=== PATIENT | male | born 1940 | race Caucasian/White ===

== ENCOUNTER → 2016-06-26 | Outpatient (CLI) | payer OTHER ==
[2016-06-26 18:21] LABS: BASO % 0.3 %; BASO ABS # 0.03 K/uL (0-0.2); COMPLETE YES; EOS % 1.1 %; HEMATOCRIT 38.3 % (42-52); IG% 0.1 %; LYMPH % 14.8 %; LYMPH ABS # 1.32 K/uL (1.2-3.4); MEAN CORPUSCULAR HEMOGLOBIN 29.1 pg (25-34); MEAN CORPUSCULAR HGB CONC 33.4 g/dl (32-36); MEAN PLATELET VOLUME 10.1 fL (7.4-10.4); MONO % 11.7 %; PLATELET COUNT 285 K/uL (130-400)
[2016-06-26 18:51] LABS: ALT/SGPT 46 U/L (12-78); AST/SGOT 28 U/L (15-37); BLOOD UREA NITROGEN 34 mg/dl (7-18); BUN/CREATININE RATIO 20.2 (10-20); CALCIUM 9.3 mg/dl (8.5-10.1); CARBON DIOXIDE 28 mmol/L (21-32); CHLORIDE 100 mmol/L (98-107); CHOLESTEROL 160 mg/dl (0-200); GLUCOSE 135 mg/dl (70-99); POTASSIUM 4.3 mmol/L (3.5-5.1); SODIUM 138 mmol/L (136-145); URIC ACID 7.6 mg/dl (2.6-7.2)
[2016-06-26 18:59] LABS: ALB/GLOB RATIO 1.1 (0.9-2); ALKALINE PHOSPHATASE 89 U/L (45-117); CHOLESTEROL/HDL RATIO 3.6; HDL CHOLESTEROL 45 mg/dl; LDL CHOLESTEROL CALCULATED 91 mg/dl; TRIGLYCERIDES 118 mg/dl (0-150); VERY LOW DENSITY LIPOPROT CALC 24 mg/dl
[2016-06-26 19:08] LABS: RATIO 822.6 mcg/mg (0-30.0)
[2016-06-27 06:41] LABS: ESTIMATED AVERAGE GLUCOSE 186 mg/dl; HA1C FLAG Normal (Normal)
== END | disposition home or self-care (01) ==
LOC: C.LABMFLN 13:42
PROVIDERS: ATTEND Family Medicine
DX: I10 Essential (primary) hypertension (principal); E11.9 Type 2 diabetes mellitus without complications; M10.9 Gout, unspecified; E03.9 Hypothyroidism, unspecified

== ENCOUNTER → 2016-09-15 | Outpatient (CLI) | payer OTHER ==
[2016-09-15 13:50] LABS: ESTIMATED AVERAGE GLUCOSE 186 mg/dl; HA1C FLAG Normal (Normal)
[2016-09-15 14:08] LABS: BLOOD UREA NITROGEN 37 mg/dl (7-18); BUN/CREATININE RATIO 20.7 (10-20); CALCIUM 9.2 mg/dl (8.5-10.1); CARBON DIOXIDE 28 mmol/L (21-32); CHLORIDE 108 mmol/L (98-107); GLUCOSE 143 mg/dl (70-99); POTASSIUM 4.7 mmol/L (3.5-5.1); SODIUM 142 mmol/L (136-145)
[2016-09-15 14:09] LABS: PHOSPHORUS 3.2 mg/dl (2.5-4.9)
== END | disposition home or self-care (01) ==
LOC: C.LABMFLN 14:00
PROVIDERS: ATTEND Family Medicine
DX: N18.9 Chronic kidney disease, unspecified (principal); E11.9 Type 2 diabetes mellitus without complications

== ENCOUNTER → 2016-11-17 | Outpatient (CLI) | payer OTHER ==
[2016-11-17 17:52] LABS: HEMATOCRIT 34.6 % (42-52); MEAN CELL VOLUME 91.3 fL (80-100); MEAN CORPUSCULAR HEMOGLOBIN 30.6 pg (25-34); MEAN CORPUSCULAR HGB CONC 33.5 g/dl (32-36); MEAN PLATELET VOLUME 10.2 fL (7.4-10.4); PLATELET COUNT 223 K/uL (130-400); RED BLOOD COUNT 3.79 M/uL (4.7-6.1); WHITE BLOOD COUNT 7.05 K/uL (4.8-10.8)
[2016-11-17 17:57] LABS: URINE APPEARANCE CLEAR (CLEAR); URINE BILIRUBIN NEG (NEG); URINE COLOR YELLOW; URINE NITRITE NEG (NEG); URINE PH 5.5 (4.5-7.5); URINE SPECIFIC GRAVITY 1.018 (1.000-1.030); UROBILINOGEN NEG (NEG)
[2016-11-17 18:11] LABS: BLOOD UREA NITROGEN 46 mg/dl (7-18); CALCIUM 8.8 mg/dl (8.5-10.1); CARBON DIOXIDE 24 mmol/L (21-32); CHLORIDE 111 mmol/L (98-107); GLUCOSE 164 mg/dl (70-99); PHOSPHORUS 3.3 mg/dl (2.5-4.9); POTASSIUM 4.6 mmol/L (3.5-5.1); SODIUM 140 mmol/L (136-145); URIC ACID 7.5 mg/dl (2.6-7.2)
[2016-11-17 18:16] LABS: MANUAL MICROSCOPIC REQUIRED? NO; REVIEW REQ? NO
[2016-11-17 18:20] LABS: URINE PROTIEN/CREAT RATIO 0.4 (0-0.2); URINE TOTAL PROTEIN 51.4 mg/dl (0-11.9)
[2016-11-18 07:32] LABS: ESTIMATED AVERAGE GLUCOSE 171 mg/dl; HA1C FLAG Normal (Normal)
== END | disposition home or self-care (01) ==
LOC: C.LABMFLN 14:41
PROVIDERS: ATTEND Family Medicine
DX: M10.9 Gout, unspecified (principal); E11.9 Type 2 diabetes mellitus without complications; N18.9 Chronic kidney disease, unspecified

== ENCOUNTER → 2016-11-30 | Outpatient (CLI) | payer OTHER ==
[2016-11-30 18:07] LABS: HEMATOCRIT 36.3 % (42-52); MEAN CELL VOLUME 91.7 fL (80-100); MEAN CORPUSCULAR HEMOGLOBIN 30.1 pg (25-34); MEAN CORPUSCULAR HGB CONC 32.8 g/dl (32-36); MEAN PLATELET VOLUME 9.8 fL (7.4-10.4); PLATELET COUNT 232 K/uL (130-400); RED BLOOD COUNT 3.96 M/uL (4.7-6.1); WHITE BLOOD COUNT 7.55 K/uL (4.8-10.8)
[2016-11-30 18:34] LABS: BLOOD UREA NITROGEN 40 mg/dl (7-18); BUN/CREATININE RATIO 19.2 (10-20); CARBON DIOXIDE 28 mmol/L (21-32); CHLORIDE 108 mmol/L (98-107); GLUCOSE 164 mg/dl (70-99); POTASSIUM 4.6 mmol/L (3.5-5.1); SODIUM 140 mmol/L (136-145)
[2016-11-30 18:40] LABS: FERRITIN 113.7 ng/ml (8.0-388.0); PHOSPHORUS 3.5 mg/dl (2.5-4.9); TOTAL IRON BINDING CAPACITY 282 mcg/dl (250-450)
== END | disposition home or self-care (01) ==
LOC: C.LABMFLN 15:07
PROVIDERS: ATTEND Internal Medicine Nephrology
DX: N18.9 Chronic kidney disease, unspecified (principal); D64.9 Anemia, unspecified

== ENCOUNTER → 2017-02-19 | Outpatient (CLI) | payer OTHER ==
[2017-02-19 13:03] LABS: HEMATOCRIT 34.9 % (42-52); MEAN CELL VOLUME 91.4 fL (80-100); MEAN CORPUSCULAR HEMOGLOBIN 30.1 pg (25-34); MEAN PLATELET VOLUME 9.9 fL (7.4-10.4); PLATELET COUNT 200 K/uL (130-400); RED BLOOD COUNT 3.82 M/uL (4.7-6.1); WHITE BLOOD COUNT 6.47 K/uL (4.8-10.8)
[2017-02-19 13:08] LABS: URINE APPEARANCE CLEAR (CLEAR); URINE BILIRUBIN NEG (NEG); URINE COLOR DK YELLOW; URINE NITRITE NEG (NEG); URINE PH 5.5 (4.5-7.5); URINE SPECIFIC GRAVITY 1.017 (1.000-1.030); UROBILINOGEN NEG (NEG)
[2017-02-19 13:11] LABS: MANUAL MICROSCOPIC REQUIRED? NO; REVIEW REQ? NO
[2017-02-19 13:15] LABS: ESTIMATED AVERAGE GLUCOSE 166 mg/dl; HA1C FLAG Normal (Normal)
[2017-02-19 13:21] LABS: BLOOD UREA NITROGEN 38 mg/dl (7-18); BUN/CREATININE RATIO 20.1 (10-20); CALCIUM 9.2 mg/dl (8.5-10.1); CARBON DIOXIDE 25 mmol/L (21-32); CHLORIDE 110 mmol/L (98-107); CREATININE 1.87 mg/dl (0.60-1.40); GLUCOSE 155 mg/dl (70-99); POTASSIUM 4.8 mmol/L (3.5-5.1); SODIUM 142 mmol/L (136-145); URIC ACID 6.1 mg/dl (2.6-7.2)
[2017-02-19 13:26] LABS: PHOSPHORUS 3.5 mg/dl (2.5-4.9)
[2017-02-19 13:59] LABS: URINE PROTIEN/CREAT RATIO 0.5 (0-0.2); URINE TOTAL PROTEIN 51.4 mg/dl (0-11.9)
== END | disposition home or self-care (01) ==
LOC: C.LABMFLN 07:25
PROVIDERS: ATTEND Family Medicine
DX: N18.9 Chronic kidney disease, unspecified (principal); E11.9 Type 2 diabetes mellitus without complications; M10.9 Gout, unspecified; R97.20 Elevated prostate specific antigen [PSA]

== ENCOUNTER → 2017-07-20 | Outpatient (CLI) | payer OTHER ==
[2017-07-20 19:02] LABS: ALBUMIN 3.7 gm/dl (3.4-5.0); BLOOD UREA NITROGEN 36 mg/dl (7-18); CALCIUM 9.4 mg/dl (8.5-10.1); CARBON DIOXIDE 26 mmol/L (21-32); CREATININE 1.94 mg/dl (0.60-1.40); GLUCOSE 111 mg/dl (70-99); POTASSIUM 4.2 mmol/L (3.5-5.1); SODIUM 138 mmol/L (136-145)
[2017-07-20 19:03] LABS: PHOSPHORUS 2.9 mg/dl (2.5-4.9)
[2017-07-21 08:03] LABS: HEMOGLOBIN A1C 7.6 % (4.5-5.6)
== END | disposition home or self-care (01) ==
LOC: C.LABMFLN 15:16
PROVIDERS: ATTEND Family Medicine
DX: E11.9 Type 2 diabetes mellitus without complications (principal)

== ENCOUNTER → 2017-11-14 | Outpatient (CLI) | payer OTHER ==
[2017-11-14 18:30] LABS: ALBUMIN 3.9 gm/dl (3.4-5.0); ALKALINE PHOSPHATASE 97 U/L (45-117); ALT/SGPT 27 U/L (12-78); AST/SGOT 22 U/L (15-37); BLOOD UREA NITROGEN 33 mg/dl (7-18); CALCIUM 8.8 mg/dl (8.5-10.1); CARBON DIOXIDE 26 mmol/L (21-32); CREATININE 1.77 mg/dl (0.60-1.40); GLUCOSE 128 mg/dl (70-99); PHOSPHORUS 3.7 mg/dl (2.5-4.9); POTASSIUM 4.5 mmol/L (3.5-5.1); SODIUM 139 mmol/L (136-145); TOTAL PROTEIN 7.8 gm/dl (6.4-8.2); TRANSFERRIN 223 mg/dl (200-360)
[2017-11-14 18:34] LABS: HEMATOCRIT 38.7 % (42-52); HEMOGLOBIN 12.6 g/dL (14.0-18.0); MEAN CELL VOLUME 91.5 fL (80-100); MEAN CORPUSCULAR HEMOGLOBIN 29.8 pg (25-34); MEAN CORPUSCULAR HGB CONC 32.6 g/dl (32-36); MEAN PLATELET VOLUME 10.5 fL (7.4-10.4); PLATELET COUNT 249 K/uL (130-400); RED CELL DISTRIBUTION WIDTH CV 13.5 % (11.5-14.5); RED CELL DISTRIBUTION WIDTH SD 44.6 fL (36.4-46.3); WHITE BLOOD COUNT 7.09 K/uL (4.8-10.8)
[2017-11-15 06:46] LABS: HEMOGLOBIN A1C 8.5 % (4.5-5.6)
== END | disposition home or self-care (01) ==
LOC: C.LABMFLN 13:24
PROVIDERS: ATTEND Family Medicine
DX: N18.3 Chronic kidney disease, stage 3 (moderate) (principal); E11.9 Type 2 diabetes mellitus without complications; E03.9 Hypothyroidism, unspecified; M10.9 Gout, unspecified; D64.9 Anemia, unspecified

== ENCOUNTER 2020-05-07 14:30 | Inpatient (IN) ==
[2020-05-07] MEDS ORDERED: PIPERACILLIN/TAZOBACTAM 4.5 GM/120 ML BAG IV ONE (14:34)
[2020-05-07] MEDS ORDERED: PIPERACILL/TAZOBAC CONSULT ACTIVE PRN ×2 (14:34→19:41)
[2020-05-07] MEDS ORDERED: PATIENT'S HEIGHT AND/OR WEIGHT NEEDED STA (14:37)
[2020-05-07] MEDS ORDERED: SODIUM CHLORIDE 0.9% 1000ML 1,000 ML IV SCH (14:45)
--- NOTE | 2020-05-07 14:53 | Emergency Department Note ---
Impression & Plan Diabetic foot infection, Cellulitis ED Provider Note INFORMANT: Patient ED PROVIDER(S): Nahid Cedeno MD CHIEF COMPLAINT: Right foot infection PLAN: Disposition: Admitted Condition: Good Outpatient prescription management: none Referral: None MEDICAL DECISION MAKING: Patient presented with concerns for possible diabetic foot infection. Physical examination did reveal significant infectious findings. He had blood work obtained. Culture was obtained. Zosyn and daptomycin antibiotic coverage was initiated after discussion with the ED pharmacist. The patient will need further management in the hospital and wound consultation. Consultation was made with the [facility] hospitalist service. Patient has a leukocytosis on CBC. Chemistry panel revealed CKD. Triage Nursing notes reviewed and agree them. Prior medical records reviewed regarding PCP visit today. Vital Signs: reviewed and remarkable for no significant abnormalities Differential diagnosis: Cellulitis, abscess, Osteomyelitis, MRSA infection, DVT, necrotizing fasciitis, dermatitis, drug eruption, allergic reaction, as well as other pathologies. Diagnostics interpreted by me: ECG: none Imaging studies: X-ray imaging of the foot is negative for osteomyelitis. I refer to the EMR for further details. HPI: The patient is a 79 year old diabetic male who presents to the Emergency Room with complaints of right foot infection. This started a few weeks ago and is worsening. The patient also notes the following associated symptoms, redness to the foot and sloughing of the skin on the great toe. The patient has been using Epsom salt soaks for relieving factors. Current pain is rated as 2/10. Patient was at his PCPs office today and there was concern for a significant diabetic foot infection and he was referred to the ER for further management. Pt denies LOC, headache, fevers, chills, diaphoresis, visual changes, neck pain, chest pain, breathing difficulties, nausea, vomiting, abdominal pain, back pain, melena, hematochezia, urinary symptoms, numbness, weakness, lymphadenopathy, rash, or other complaints. ROS: See above HPI for pertinent positives & negatives. A total of 10 systems reviewed and were otherwise negative. PAST MEDICAL HISTORY:See Below , diabetes, CKD PAST SURGICAL HISTORY:See Below, FAMILY HISTORY:See Below SOCIAL HISTORY:See Below, HOME MEDICATIONS:See Below ALLERGIES:See Below VITALS:See Below PHYSICAL EXAMINATION: GENERAL: Awake, alert, well-appearing, in no distress HENT: Normocephalic, atraumatic. Oropharynx unremarkable. EYES: Normal conjunctiva. Sclera non-icteric. NECK: Inspection normal. Non-tender. Supple. No nuchal rigidity. FROM. No masses. RESPIRATORY: Clear to auscultation. No wheezes. No rales. Normal respiratory effort. CARDIAC: Normal rate. Normal rhythm. No murmurs. No rubs. Extremities warm and well perfused. Pulses equal. No JVD. GI: Soft, non-distended. No tenderness to palpation. No rebound or guarding. No masses. RECTAL: Deferred. MUSCULOSKELETAL: Atraumatic. Chest examination reveals no tenderness. The back is symmetrical on inspection without obvious abnormality. There is no CVA tenderness to palpation. No joint edema. LOWER EXTREMITIES: Calves are equal size bilaterally and non-tender. 1-2+ edema bilaterally. There is erythematous discoloration on the right foot. There is sloughing of the skin of the right great toe with maceration present. There is a large ulcer like dark lesion on the plantar surface of the right great toe. Malodorous. NEURO: Normal sensorium. No focal sensory or motor deficits noted. Mild decrease sensation on the feet. Patient's gait is mildly unsteady. SKIN: No rash or jaundice noted. Nahid Cedeno MD Past Med/Surg History Medical History Anxiety and depression Benign essential hypertension Cellulitis of right lower extremity CKD (chronic kidney disease) stage 3, GFR 30-59 ml/min Diabetes mellitus, type 2 Diabetic foot infection Diabetic peripheral neuropathy Gout Hearing deficit 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 Hypothyroidism Occlusion and stenosis of right carotid artery Poor historian Surgical History History of anesthesia reaction History of cataract surgery History of tooth extraction History of total hip arthroplasty Family History Mother Diabetes Father Esophageal cancer Social History Smoking Status: Never smoker Second Hand Exposure: No; Hx Alcohol Use: No Hx Substance Use: No Preferred Language: Arabic Communication Ability: Effective 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 Beliefs That Will Affect Care: None marital status: Current Living Situation: Spouse Feels Safe at Home: Yes Assistive Devices: Cane, Denture - Upper, Denture - Lower and Hearing Aid - Left Allergies Allergies Allergy/AdvReac Type Severity Reaction Status Date / Time Sulfa (Sulfonamide Allergy Unknown UNSURE OF Verified 05/07/20 13:29 Antibiotics) REACTION, WAS TOLD BY MOTHER Home Meds Home Medications Medication Instructions Recorded Confirmed cholecalciferol (vitamin D3) 50 50 mcg PO DAILY 12/30/19 05/07/20 mcg (2,000 unit) capsule vitamin B complex 1 tab PO DAILY 12/30/19 05/07/20 multivitamin 1 tab PO DAILY 01/22/20 05/07/20 Previous Rx's Medication Instructions Recorded glimepiride 1 mg tablet 1 mg PO QAM #90 tab 09/18/19 duloxetine 20 mg capsule,delayed 20 mg PO DAILY #90 cap 12/30/19 release levothyroxine 50 mcg tablet 50 mcg PO DAILY #90 tab 12/31/19 amlodipine 2.5 mg tablet 2.5 mg PO PM #90 tab 01/07/20 losartan 100 mg tablet 100 mg PO DAILY #90 tab 01/22/20 allopurinol 300 mg tablet 300 mg PO DAILY #90 tab 04/01/20 Results & Data (ED) Vital Signs Vital Signs - 24 hr 05/07/20 14:33 05/07/20 15:48 05/07/20 15:49 Temperature 36.4 C L Temperature Source Oral Pulse Rate 78 Pulse Rate [Apical] 86 Pulse Rate from SpO2 Sensor Respiratory Rate 20 26 H Respiratory Effort / Characteristics Non-Labored Spontaneous Blood Pressure 141/69 H Blood Pressure [Right Arm] 171/84 H Blood Pressure Mean 93 Blood Pressure Mean [Right Arm] 113 Pulse Oximetry 94 98 Oxygen Delivery Method Room Air Room Air Room Air Sepsis Recent Fever Within 48 Hours No Sepsis New/Unexplained Change in Mental Status N/A Sepsis Action Taken by Nursing No Action Required 05/07/20 16:00 05/07/20 16:15 05/07/20 16:30 Temperature Temperature Source Pulse Rate 87 85 86 Pulse Rate [Apical] Pulse Rate from SpO2 Sensor 86 Respiratory Rate 21 24 25 H Respiratory Effort / Characteristics Non-Labored Spontaneous Non-Labored Spontaneous Blood Pressure 171/86 H 174/82 H Blood Pressure [Right Arm] Blood Pressure Mean 129 97 Blood Pressure Mean [Right Arm] Pulse Oximetry 98 Oxygen Delivery Method Room Air Room Air Sepsis Recent Fever Within 48 Hours Sepsis New/Unexplained Change in Mental Status Sepsis Action Taken by Nursing 05/07/20 16:45 05/07/20 17:00 05/07/20 17:15 Temperature Temperature Source Pulse Rate 89 91 H 89 Pulse Rate [Apical] Pulse Rate from SpO2 Sensor 88 92 H 89 Respiratory Rate 23 29 H 19 Respiratory Effort / Characteristics Non-Labored Spontaneous Blood Pressure 184/86 H Blood Pressure [Right Arm] Blood Pressure Mean 120 Blood Pressure Mean [Right Arm] Pulse Oximetry 98 98 98 Oxygen Delivery Method Room Air Room Air Room Air Sepsis Recent Fever Within 48 Hours Sepsis New/Unexplained Change in Mental Status Sepsis Action Taken by Nursing 05/07/20 17:30 05/07/20 17:31 05/07/20 17:32 Temperature Temperature Source Pulse Rate 87 91 H Pulse Rate [Apical] Pulse Rate from SpO2 Sensor 94 H 93 H Respiratory Rate 18 21 Respiratory Effort / Characteristics Non-Labored Spontaneous Blood Pressure 167/90 H Blood Pressure [Right Arm] Blood Pressure Mean 128 Blood Pressure Mean [Right Arm] Pulse Oximetry 96 99 Oxygen Delivery Method Room Air Room Air Sepsis Recent Fever Within 48 Hours Sepsis New/Unexplained Change in Mental Status Sepsis Action Taken by Nursing 05/07/20 18:00 Temperature Temperature Source Pulse Rate Pulse Rate [Apical] Pulse Rate from SpO2 Sensor Respiratory Rate Respiratory Effort / Characteristics Non-Labored Spontaneous Blood Pressure Blood Pressure [Right Arm] Blood Pressure Mean Blood Pressure Mean [Right Arm] Pulse Oximetry Oxygen Delivery Method Room Air Sepsis Recent Fever Within 48 Hours Sepsis New/Unexplained Change in Mental Status Sepsis Action Taken by Nursing Laboratory Data Result diagrams: 05/07/20 16:05 05/07/20 16:05 Lab Results 05/07/20 05/07/20 05/07/20 Range/Units 15:45 15:45 16:05 WBC 15.21 H (4.8-10.8) K/uL RBC 3.37 L (4.7-6.1) M/uL Hgb 10.1 L (14.0-18.0) g/dL Hct 30.7 L (42-52) % MCV 91.1 (80-100) fL MCH 30.0 (25-34) pg MCHC 32.9 (32-36) g/dL RDW Std Deviation 45.5 (36.4-46.3) fL RDW Coeff of Reyes 13.7 (11.5-14.5) % Plt Count 385 (130-400) K/uL MPV 9.4 (7.4-10.4) fL Immature Gran % (Auto) 0.3 % Neut % (Auto) 82.4 % Lymph % (Auto) 14.3 % [place] % (Auto) 2.7 % Eos % (Auto) 0.2 % Baso % (Auto) 0.1 % Neut # (Auto) 12.54 H (1.4-6.5) K/uL Lymph # (Auto) 2.17 (1.2-3.4) K/uL [place] # (Auto) 0.41 (0.11-0.59) K/uL Eos # (Auto) 0.03 (0-0.5) K/uL Baso # (Auto) 0.02 (0-0.2) K/uL Immature Gran # (Auto) 0.04 H (0.00-0.02) K/uL Sodium (136-145) mmol/L Potassium (3.5-5.1) mmol/L Chloride (98-107) mmol/L Carbon Dioxide (21-32) mmol/L Anion Gap (3-11) BUN (7-18) mg/dl Creatinine (0.6-1.4) mg/dl Est Cr Clr Drug Dosing ml/min Est GFR ( Amer) Est GFR (Non-Af Amer) BUN/Creatinine Ratio (10-20) Glucose (70-99) mg/dl Lactate (0.4-2.0) mmol/L Calcium (8.5-10.1) mg/dl Magnesium (1.8-2.4) mg/dl Total Bilirubin (0.2-1) mg/dl AST (15-37) U/L ALT (12-78) U/L Alkaline Phosphatase (45-117) U/L Total Protein (6.4-8.2) gm/dl Albumin (3.4-5.0) gm/dl Globulin (2.5-4.0) gm/dl Albumin/Globulin Ratio (0.9-2) COVID-19 [facility] SARS-CoV-2, RNA, NAAT NEGATIVE (NEGATIVE) 01/08/21 01/08/21 Range/Units 16:05 16:05 WBC (4.8-10.8) K/uL RBC (4.7-6.1) M/uL Hgb (14.0-18.0) g/dL Hct (42-52) % MCV (80-100) fL MCH (25-34) pg MCHC (32-36) g/dL RDW Std Deviation (36.4-46.3) fL RDW Coeff of Reyes (11.5-14.5) % Plt Count (130-400) K/uL MPV (7.4-10.4) fL Immature Gran % (Auto) % Neut % (Auto) % Lymph % (Auto) % [place] % (Auto) % Eos % (Auto) % Baso % (Auto) % Neut # (Auto) (1.4-6.5) K/uL Lymph # (Auto) (1.2-3.4) K/uL [place] # (Auto) (0.11-0.59) K/uL Eos # (Auto) (0-0.5) K/uL Baso # (Auto) (0-0.2) K/uL Immature Gran # (Auto) (0.00-0.02) K/uL Sodium 132 L (136-145) mmol/L Potassium 4.6 (3.5-5.1) mmol/L Chloride 101 (98-107) mmol/L Carbon Dioxide 26 (21-32) mmol/L Anion Gap 5.0 (3-11) BUN 52 H (7-18) mg/dl Creatinine 2.26 H (0.6-1.4) mg/dl Est Cr Clr Drug Dosing 31.3 ml/min Est GFR ( Amer) 31.3 Est GFR (Non-Af Amer) 27.0 BUN/Creatinine Ratio 22.9 H (10-20) Glucose 131 H (70-99) mg/dl Lactate 0.8 (0.4-2.0) mmol/L Calcium 9.5 (8.5-10.1) mg/dl Magnesium 2.0 (1.8-2.4) mg/dl Total Bilirubin 0.5 (0.2-1) mg/dl AST 29 (15-37) U/L ALT 28 (12-78) U/L Alkaline Phosphatase 88 (45-117) U/L Total Protein 8.3 H (6.4-8.2) gm/dl Albumin 3.3 L (3.4-5.0) gm/dl Globulin 5.0 H (2.5-4.0) gm/dl Albumin/Globulin Ratio 0.7 L (0.9-2) COVID-19 Eval Order SARS-CoV-2, RNA, NAAT (NEGATIVE) Administered Medications Amlodipine Besylate (Amlodipine Besylate 5 Mg Tab) 2.5 mg PO PM KERA Stop: 06/06/20 20:59 Last Admin: 05/07/20 22:21 Dose: 2.5 mg Documented by: [id number] Sodium Chloride (Nss 1000ml) 1,000 mls @ 80 mls/hr IV .[id number] KERA Stop: 05/08/20 20:40 Last Infusion: 05/07/20 21:26 Dose: 0 mls/hr Documented by: [id number] Admin: 05/07/20 20:50 Dose: 80 mls/hr Documented by: [id number] Insulin Aspart (Insulin Aspart 100 Units/Ml 3 Ml Pen) 0 units SC ACHS KERA Stop: 06/06/20 20:59 Last Admin: 05/07/20 22:20 Dose: 5 units Documented by: [id number] Cosigned by: [id number] Discontinued Medications Sodium Chloride (Nss 1000ml) 1,000 mls @ 999 mls/hr IV .[id number] KERA Stop: 05/07/20 15:45 Last Infusion: 05/07/20 17:27 Dose: 0 mls/hr Documented by: [id number] Admin: 05/07/20 16:26 Dose: 999 mls/hr Documented by: [id number] Piperacillin Sod/Tazobactam Sod (Zosyn) 4.5 gm in 120 mls @ 240 mls/hr IV NOW ONE Stop: 05/07/20 15:03 Last Infusion: 05/07/20 16:57 Dose: 0 mls/hr Documented by: [id number] Admin: 05/07/20 16:27 Dose: 240 mls/hr Documented by: [id number] Daptomycin 425 mg/ Syringe 8.5 mls @ 4.25 mls/min IV NOW STA; Protocol Stop: 05/07/20 15:59 Last Admin: 05/07/20 16:26 Dose: 4.25 mls/min Documented by: [id number] Miscellaneous (Patient's Height And/Or Weight Needed) 1 ea N/A NOW STA Stop: 05/07/20 14:38 Last Admin: 05/07/20 15:52 Dose: 1 ea Documented by: [id number] Discharge Plan Visit Data Chief Complaint: Foot Injury/Pain Stated Complaint: RIGHT FOOT INFECTION ED Provider: Nahid Cedeno Discharge Problem: Diabetic foot infection, Cellulitis Patient Disposition: Admitted As Inpatient Discharge Instructions Interventions: ED Discharge Assessment Last Done: 05/07/20 19:20
--- NOTE | 2020-05-07 15:11 | XRay Report ---
XR foot RT min 3V routine CLINICAL HISTORY: diabetic foot infection from great toe COMPARISON: None FINDINGS: Alignment of the right foot is anatomic. Tarsometatarsal joints are intact. There is exten sive vascular calcification. Plantar calcaneal spurring is incidentally noted. Note is made of modera te to severe osteoarthritis of the right first metatarsophalangeal joint. There is no acute fracture. There is no radiographic evidence of osteomyelitis. Right great toe soft tissue swelling is present. IMPRESSION: 1. No acute fracture. No radiographic evidence of osteomyelitis within the right foot. Right great to e soft tissue swelling. 2. 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 3. Extensive vascular calcification. ACT 112: Negative or not required by law. Electronically signed by: Nash Sanders M.D. 05/07/2020 3:10 PM
[2020-05-07] MEDS ORDERED: DAPTOmycin 425 MG in SYRINGE 0 ML IV STA (15:58)
[2020-05-07 16:20] LABS: Basophils # (auto) 0.02 K/uL (0-0.2); Basophils % (auto) 0.1 %; Eosinophils # (auto) 0.03 K/uL (0-0.5); Eosinophils % (auto) 0.2 %; Hematocrit (blood only) 30.7 % (42-52); Hemoglobin 10.1 g/dL (14.0-18.0); Immature Granulocytes # (auto) 0.04 K/uL (0.00-0.02); Immature Granulocytes % (auto) 0.3 %; Lymphocytes # (auto) 2.17 K/uL (1.2-3.4); Lymphocytes % (auto) 14.3 %; Mean Corpuscular Hgb Conc 32.9 g/dL (32-36); Mean Corpuscular Volume 91.1 fL (80-100); Mean Platelet Volume 9.4 fL (7.4-10.4); Monocytes # (auto) 0.41 K/uL (0.11-0.59); Monocytes % (auto) 2.7 %; Neutrophils # (auto) 12.54 K/uL (1.4-6.5); Neutrophils % (auto) 82.4 %; Platelet Count 385 K/uL (130-400); RDW Coefficient of Variation 13.7 % (11.5-14.5); RDW Standard Deviation 45.5 fL (36.4-46.3); Red Blood Count 3.37 M/uL (4.7-6.1); White Blood Count 15.21 K/uL (4.8-10.8)
[2020-05-07 16:39] LABS: Albumin Level 3.3 gm/dl (3.4-5.0); BUN Creatinine Ratio 22.9 (10-20); Calcium 9.5 mg/dl (8.5-10.1); Creatinine Clr Calc Pharmacy 31.3 ml/min; Est GFR (African American) 31.3; Potassium 4.6 mmol/L (3.5-5.1)
[2020-05-07 16:41] LABS: Albumin Globulin Ratio 0.7 (0.9-2); Bilirubin,Total 0.5 mg/dl (0.2-1); Total Protein 8.3 gm/dl (6.4-8.2)
--- NOTE | 2020-05-07 18:34 | History & Physical Report ---
Date of Service May 07, 2020 Assessment & Plan (1) Diabetic foot infection: Patient is a 79 year old male with PMHx SETH, Depression, BPH, CKD III, DM2, Diabetic Neuropathy, Hypothyroidism, and Gout that presented initially with concerns of a foot infection on his great R toe. After being evaluated in the outpatient setting by his PCP he was instructed to present to the ED for IV antibiotics and wound care. Ulcer of Great R Toe with surrounding Cellulitis -Given IV Zosyn and Daptomycin in ED -XR without obvious signs of osteomyelitis -Pulses difficult to palpate on the R foot, audible with doppler. Will order for arterial doppler. -Continue IV Zosyn, will DC Daptomycin at this time, low suspicion for MRSA and without signs of osteomyelitis -Wound care consulted Diabetes Mellitus 2 -Hold home medications -SSI and basal bolus -Pharmacy consulted for assistance in glucose management CAROLYNE on CKD -Creatinine mildly elevated at 2.26 from baseline ~2 -Will hold Losartan at this time -Gentle IVF NSS 80ml/hr Hypertension -Continue home Amlodipine -Hold Losartan SETH/Depression -Continue home Duloxetine Hx Gout -Continue home Allopurinol Hypothyroidism -TSH for AM pending -Continue home Levothyroxine Dispo: Med/Surg FEN: DM2 diet, NSS 80ml/hr DVT: SCD Code: Conditional - NO INTUBATION, CPR only (2) Cellulitis: (3) Cellulitis of right lower extremity: (4) Generalized anxiety disorder: (5) Depression, major, recurrent: (6) Benign essential hypertension: (7) CKD (chronic kidney disease) stage 3, GFR 30-59 ml/min: (8) Gout: (9) Hypothyroidism: History of Present Illness Chief Complaint: R toe infection Primary Care Provider: Ilsa Smith MD Patient is a 79 year old male with PMHx SETH, Depression, BPH, CKD III, DM2, Diabetic Neuropathy, Hypothyroidism, and Gout that presented initially with concerns of a foot infection on his great R toe. After being evaluated in the outpatient setting by his PCP he was instructed to present to the ED for IV antibiotics and wound care. Patient notes that he started having issues with his toe roughly 2 weeks ago and at that time had believed it to be due to his blood pressure medication Amlodipine. He does admit that he does not check his feet often so is unsure how the progression of ulcer has been. He states that last night he had soaked his foot in hydrogen peroxide in hopes to treat the infection, but felt it only worsened the redness around his foot. He saw his PCP earlier today which recommended the patient come to the ED for IV antibiotics and wound care. Patient notes that he does not feel pain in the foot, and in fact has very minimal feeling in his feet at all. Currently denies any fever, chills, SOB, chest pain, abdominal pain, dysuria, constipation, diarrhea. Medical Hx: SETH, Depression, DM2, BPH, Heart Block, CKD III, Gout, Hypothyroidism Surgical Hx: L hip replacement, L Cataract surgery Family Hx: Brother DM2 Social Hx: Does not use tobacco, alcohol, or illicit drugs Allergies Allergy/AdvReac Type Severity Reaction Status Date / Time Sulfa (Sulfonamide Allergy Unknown UNSURE OF Verified 05/07/20 13:29 Antibiotics) REACTION, WAS TOLD BY MOTHER Home Medications Medication Instructions Recorded Confirmed Type glimepiride 1 mg tablet 1 mg PO QAM #90 tab 09/18/19 05/07/20 Rx cholecalciferol (vitamin D3) 50 50 mcg PO DAILY 12/30/19 05/07/20 History mcg (2,000 unit) capsule duloxetine 20 mg capsule,delayed 20 mg PO DAILY #90 cap 12/30/19 05/07/20 Rx release vitamin B complex 1 tab PO DAILY 12/30/19 05/07/20 History levothyroxine 50 mcg tablet 50 mcg PO DAILY #90 tab 12/31/19 05/07/20 Rx amlodipine 2.5 mg tablet 2.5 mg PO PM #90 tab 01/07/20 05/07/20 Rx losartan 100 mg tablet 100 mg PO DAILY #90 tab 01/22/20 05/07/20 Rx multivitamin 1 tab PO DAILY 01/22/20 05/07/20 History allopurinol 300 mg tablet 300 mg PO DAILY #90 tab 04/01/20 05/07/20 Rx Past Med/Surg History Medical History Anxiety and depression Benign essential hypertension Cellulitis of right lower extremity CKD (chronic kidney disease) stage 3, GFR 30-59 ml/min Diabetes mellitus, type 2 Diabetic foot infection Diabetic peripheral neuropathy Gout Hearing deficit 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 Hypothyroidism Occlusion and stenosis of right carotid artery Poor historian Surgical History History of anesthesia reaction History of cataract surgery History of tooth extraction History of total hip arthroplasty Family History Mother Diabetes Father Esophageal cancer Social History Smoking Status: Never smoker Second Hand Exposure: No; Do You Dip or Chew Tobacco: No; Hx Alcohol Use: No Hx Substance Use: No Preferred Language: Luxembourgish Communication Ability: Effective Communication Ability Comment: hard of hearing Power Generation Equipment Repairer Required: No Beliefs That Will Affect Care: None marital status: Current Living Situation: Spouse Other Information That Helps Us Care for You: No Feels Safe at Home: Yes Safety Concerns: Feels Safe At This Time Assistive Devices: Cane, Denture - Upper and Hearing Aid - Left Review of Systems Review of Systems: All systems reviewed & are unremarkable except as noted in Subjective Physical Exam Constitutional: well developed and well nourished; no acute distress Eyes: normal visual lobo by confrontation and PERRL Neck: trachea midline, no thyromegaly Respiratory: normal respiratory effort, lungs clear to auscultation Cardiovascular: Rate/Rhythm: regular rate and regular rhythm Extremities: no calf tenderness Gastrointestinal (Abdomen): normal bowel sounds, soft, nontender, no hepatosplenomegaly Musculoskeletal: Macerated R toe with medial eschar appearing lesion. No overt drainage. Surrounding cellulitis of the dorsal foot spreading to 2 inches before the ankle. Results & Data Results & Data ([facility]) Vital Signs (Past 12 Hours) Vital Signs Temp Pulse Pulse Resp BP BP Pulse Ox 05/07/20 17:32 91 H 21 99 05/07/20 17:31 87 18 167/90 H 96 05/07/20 17:15 89 19 98 05/07/20 17:00 91 H 29 H 184/86 H 98 05/07/20 16:45 89 23 98 05/07/20 16:30 86 25 H 174/82 H 98 05/07/20 16:15 85 24 05/07/20 16:00 87 21 171/86 H 05/07/20 15:48 86 26 H 171/84 H 98 05/07/20 14:33 36.4 C L 78 20 141/69 H 94 Supervising Physician Co-Signing Physician Notes I personally saw and examined the patient. I verified all quintana points and agree with resident physician El De Luna with the following exceptions and/or additions: 79-year-old male who presents to the ER with 2-week history (although I suspect much longer) O/E nonviable skin surrounding lateral half of the right first toe however with pink tissue beneath this. Foul-smelling unstageable ulcer on the dorsal distal first metatarsal head. A/P Cellulitis -no history of MRSA, foul-smelling (suspect Pseudomonas) - continue Zosyn, can discontinue MRSA coverage as nonseptic and no osteomyelitis suspected from x-ray. Follow-up wound and blood cultures. Diabetic/neuropathic unstageable foot ulcer - consult wound care nurse and provider Unable to palpate peripheral right lower extremity pulses - ultrasound arterial Doppler to assess for peripheral artery disease CKD-patient does not have CAROLYNE as above but agree with IV fluids. Resident Activity Tracking Resident Involvement: Resident Care Provided Care Provided: Adult Hospital Medicine
[2020-05-07] MEDS ORDERED: GLUCOSE 40% GEL 15 GM TUBE PO PRN (19:41)
[2020-05-07] MEDS ORDERED: GLUCOSE 10 TABS/TUBE PO PRN (19:41)
[2020-05-07] MEDS ORDERED: CARBOHYDRATES FOR HYPOGLYCEMIA PO PRN (19:41)
[2020-05-07] MEDS ORDERED: DEXTROSE 50% 50 ML SYRINGE IV PRN (19:41)
[2020-05-07] MEDS ORDERED: GLUCAGON FOR INJ 1 MG VIAL SQ PRN (19:41)
[2020-05-07] MEDS ORDERED: PHARMACY GLYCEMIC MGMT CONSULT PRN (19:48)
[2020-05-07] MEDS: SODIUM CHLORIDE 0.9% 1000ML 1,000 ML IV SCH (20:50)
[2020-05-07] MEDS: INSULIN ASPART 100 UNITS/ML 3 ML PEN SC SCH (22:20)
[2020-05-07] MEDS: amLODIPine BESYLATE 5 MG TAB PO SCH ×2 (22:21→22:48)
[2020-05-07] MEDS ORDERED: Nursing to Pharmacy Communication SCH (22:30)
[2020-05-07] MEDS: DULoxetine HCL 20 MG CAP PO SCH (22:48)
[2020-05-07] MEDS: PIPERACILLIN/TAZOBACTAM 3.375 GM in DEXTROSE 5% 100 ML IV SCH (22:59)
[2020-05-08] MEDS ORDERED: INSULIN ASPART 100 UNITS/ML 3 ML PEN SC SCH (02:00)
[2020-05-08] MEDS: LEVOTHYROXINE SODIUM 50 MCG TABLET PO SCH (05:57)
[2020-05-08 06:30] LABS: Basophils # (auto) 0.02 K/uL (0-0.2); Basophils % (auto) 0.2 %; Eosinophils # (auto) 0.04 K/uL (0-0.5); Eosinophils % (auto) 0.3 %; Hematocrit (blood only) 28.5 % (42-52); Hemoglobin 9.4 g/dL (14.0-18.0); Immature Granulocytes # (auto) 0.01 K/uL (0.00-0.02); Immature Granulocytes % (auto) 0.1 %; Lymphocytes # (auto) 1.31 K/uL (1.2-3.4); Lymphocytes % (auto) 10.8 %; Mean Corpuscular Hemoglobin 29.9 pg (25-34); Mean Corpuscular Volume 90.8 fL (80-100); Mean Platelet Volume 9.4 fL (7.4-10.4); Monocytes # (auto) 1.47 K/uL (0.11-0.59); Monocytes % (auto) 12.1 %; Neutrophils # (auto) 9.29 K/uL (1.4-6.5); Neutrophils % (auto) 76.5 %; Platelet Count 358 K/uL (130-400); RDW Coefficient of Variation 13.8 % (11.5-14.5); RDW Standard Deviation 45.7 fL (36.4-46.3); Red Blood Count 3.14 M/uL (4.7-6.1); White Blood Count 12.14 K/uL (4.8-10.8)
[2020-05-08] MEDS: PIPERACILLIN/TAZOBACTAM 3.375 GM in DEXTROSE 5% 100 ML IV SCH ×3 (06:34→22:11)
[2020-05-08 06:54] LABS: BUN Creatinine Ratio 22.3 (10-20); Calcium 9.1 mg/dl (8.5-10.1); Est GFR (African American) 35.8; Est GFR (Non-African American) 30.9; Potassium 4.4 mmol/L (3.5-5.1)
[2020-05-08 06:56] LABS: Estimated Average Glucose 177 mg/dl; Hemoglobin A1C 7.8 % (4.5-5.6)
[2020-05-08 07:05] LABS: Thyroid Stimulating Hormone 0.582 uIu/ml (0.300-4.500)
[2020-05-08] MEDS: allopurinoL 300 MG TAB PO SCH (08:33)
[2020-05-08] MEDS: CHOLECALCIFEROL 1,000 UNITS 25 MCG TAB PO SCH (08:34)
[2020-05-08] MEDS: INSULIN ASPART 100 UNITS/ML 3 ML PEN SC SCH ×4 (08:36→22:04)
--- NOTE | 2020-05-08 08:57 | Ultrasound Report ---
US arterial duplex LE RT CLINICAL HISTORY: non-healing R toe ulcer COMPARISON STUDY: None FINDINGS: There are diffuse atheromatous changes. There is triphasic flow within the right common femoral artery. There is triphasic flow within the solorzano perficial femoral artery. There is triphasic flow within the popliteal artery. There is a high velocity jet within the right posterior tibial artery consistent with a stenosis. The re is diminished flow distal to the stenosis which is monophasic. No flow was visualized in the right peroneal. There is monophasic flow within the right anterior tibial. IMPRESSION: 1. 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 No flow visualized within the peroneal artery, possibly secondary to occlusion. 3. No evidence of hemodynamically significant common femoral superficial femoral or popliteal artery stenosis ACT 112: Negative or not required by law. Electronically signed by: Eulalio Shah M.D. 05/08/2020 8:56 AM
[2020-05-08] MEDS ORDERED: INSULIN GLARGINE SOLOSTAR 100 UNITS/ML 3 ML PEN SC SCH (09:00)
[2020-05-08] MEDS ORDERED: DULoxetine HCL 20 MG CAP PO SCH (09:00)
[2020-05-08] MEDS: SODIUM CHLORIDE 0.9% 1000ML 1,000 ML IV SCH (10:59)
--- NOTE | 2020-05-08 14:45 | Billing Data ---
Date of Service May 07, 2020 Coding Level of Care Code 10896 Initial Inpt Care Lvl 2
--- NOTE | 2020-05-08 14:59 | Hospitalist Progress Note ---
Date of Service May 08, 2020 Assessment & Plan (1) Diabetic foot infection: Patient is a 79 year old male with PMHx SETH, Depression, BPH, CKD III, DM2, Diabetic Neuropathy, Hypothyroidism, and Gout that presented initially with concerns of a foot infection on his great R toe. After being evaluated in the outpatient setting by his PCP he was instructed to present to the ED for IV antibiotics and wound care. Severe peripheral vascular disease - high grade stenosis in right posterior tibial artery, possible occlusion of peroneal artery - foot is warm, not cold - consult vascular surgery - start on aspirin 81mg daily Ulcer of Great R Toe with surrounding Cellulitis - continue Zosyn WBC down to 12 from 15, no fever -XR without obvious signs of osteomyelitis - toe appears to be dry gangrene, no sensation, tissue very dark almost black likely that it will need amputated, consult vascular surgery for their recommendations Diabetes Mellitus 2 -Hold home medications -SSI and basal bolus -Pharmacy consulted for assistance in glucose management monitor for hypoglycemia, had an episode of 55 this morning, no symptoms, quickly corrected CAROLYNE on CKD -Creatinine mildly elevated at 2.26 from baseline ~2 -Will continue to hold Losartan at this time -Gentle IVF NSS 80ml/hr, Cr down to 2.0, can stop IV fluids as he is drinking well Hypertension -Continue home Amlodipine -Hold Losartan due to CAROLYNE SETH/Depression -Continue home Duloxetine Hx Gout -Continue home Allopurinol Hypothyroidism -TSH for AM pending -Continue home Levothyroxine Dispo: Med/Surg FEN: DM2 diet, NSS 80ml/hr DVT: SCD Code: Conditional - NO INTUBATION, CPR only (2) Peripheral artery disease: severe PAD, high grade stenosis of right posterior tibial (3) Cellulitis: (4) Cellulitis of right lower extremity: (5) Generalized anxiety disorder: (6) Depression, major, recurrent: (7) Benign essential hypertension: (8) CKD (chronic kidney disease) stage 3, GFR 30-59 ml/min: (9) Gout: (10) Hypothyroidism: Admission and Anticipated Discharge Date Admission Date: May 07, 2020 Subjective patient is doing fine today, denies pain in right great toe, denies fever/chills he says that the infection has been there for 4 weeks, slowly getting worse he said that it got worse after he removed a callous from the medial side the toe has dark discoloration, appears to have dry gangrene, he swears it was not black yesterday I spoke with the admitting provider, he said that the toe was black yesterday on admission reviewed the arterial duplex study, he has high grade stenosis in the posterior tibial artery, no flow below the peroneal artery, possible occlusion foot is warm, has blood flow discussed with him that he likely needs vascular intervention, worried that he will not keep the toe will consult vascular for their opinion and recommendations Review of Systems Review of Systems: All systems reviewed & are unremarkable except as noted in Subjective Physical Exam Constitutional: WD/WN, vitals as above no acute distress Neck: trachea midline, no thyromegaly Respiratory: normal respiratory effort, lungs clear to auscultation Cardiovascular: RRR, no murmur, no edema Gastrointestinal (Abdomen): normal bowel sounds, soft, nontender, no hepatosplenomegaly Musculoskeletal: no cyanosis or clubbing, extremities motor strength 5/5 Skin: no rashes, warm and dry Neurologic: patellar DTR's 2+ bilat, sensation intact and PERRL, EOMI, accom modation nl, no face palsy, no dysarthria Psychiatric: A+Ox3, euthymic affect Lymphatic: no cervical or axillary lymphadenopathy Results & Data Results & Data ([facility]) Vital Signs (Past 12 Hours) Vital Signs Temp Pulse Resp BP Pulse Ox 05/08/20 07:58 37.3 C 80 16 160/78 H 94 Laboratory Results Laboratory Results - last 24 hr 05/07/20 05/07/20 05/07/20 15:45 15:45 16:05 WBC 15.21 H RBC 3.37 L Hgb 10.1 L Hct 30.7 L MCV 91.1 MCH 30.0 MCHC 32.9 RDW Std Deviation 45.5 RDW Coeff of Reyes 13.7 Plt Count 385 MPV 9.4 Immature Gran % (Auto) 0.3 Neut % (Auto) 82.4 Lymph % (Auto) 14.3 Ritchie % (Auto) 2.7 Eos % (Auto) 0.2 Baso % (Auto) 0.1 Neut # (Auto) 12.54 H Lymph # (Auto) 2.17 Ritchie # (Auto) 0.41 Eos # (Auto) 0.03 Baso # (Auto) 0.02 Immature Gran # (Auto) 0.04 H Sodium Potassium Chloride Carbon Dioxide Anion Gap BUN Creatinine Est Cr Clr Drug Dosing Est GFR ( Amer) Est GFR (Non-Af Amer) BUN/Creatinine Ratio Glucose POC Glucose Estimat Average Glucose Hemoglobin A1c Lactate Calcium Magnesium Total Bilirubin AST ALT Alkaline Phosphatase Total Protein Albumin Globulin Albumin/Globulin Ratio TSH COVID-19 Eval Order Covid19 IDNow atMMAC SARS-CoV-2, RNA, NAAT NEGATIVE 05/07/20 05/07/20 05/07/20 16:05 16:05 19:48 WBC RBC Hgb Hct MCV MCH MCHC RDW Std Deviation RDW Coeff of Reyes Plt Count MPV Immature Gran % (Auto) Neut % (Auto) Lymph % (Auto) Ritchie % (Auto) Eos % (Auto) Baso % (Auto) Neut # (Auto) Lymph # (Auto) Ritchie # (Auto) Eos # (Auto) Baso # (Auto) Immature Gran # (Auto) Sodium 132 L Potassium 4.6 Chloride 101 Carbon Dioxide 26 Anion Gap 5.0 BUN 52 H Creatinine 2.26 H Est Cr Clr Drug Dosing 31.3 Est GFR ( Amer) 31.3 Est GFR (Non-Af Amer) 27.0 BUN/Creatinine Ratio 22.9 H Glucose 131 H POC Glucose 122 H Estimat Average Glucose Hemoglobin A1c Lactate 0.8 Calcium 9.5 Magnesium 2.0 Total Bilirubin 0.5 AST 29 ALT 28 Alkaline Phosphatase 88 Total Protein 8.3 H Albumin 3.3 L Globulin 5.0 H Albumin/Globulin Ratio 0.7 L [facility] COVID-19 Eval Order SARS-CoV-2, RNA, NAAT 05/08/20 05/08/20 05/08/20 02:02 05:44 05:44 WBC 12.14 H RBC 3.14 L Hgb 9.4 L Hct 28.5 L MCV 90.8 MCH 29.9 MCHC 33.0 RDW Std Deviation 45.7 RDW Coeff of Reyes 13.8 Plt Count 358 MPV 9.4 Immature Gran % (Auto) 0.1 Neut % (Auto) 76.5 Lymph % (Auto) 10.8 Ritchie % (Auto) 12.1 Eos % (Auto) 0.3 Baso % (Auto) 0.2 Neut # (Auto) 9.29 H Lymph # (Auto) 1.31 Ritchie # (Auto) 1.47 H Eos # (Auto) 0.04 Baso # (Auto) 0.02 Immature Gran # (Auto) 0.01 Sodium 136 Potassium 4.4 Chloride 107 Carbon Dioxide 22 Anion Gap 7.0 BUN 45 H Creatinine 2.02 H Est Cr Clr Drug Dosing 35.0 Est GFR ( Amer) 35.8 Est GFR (Non-Af Amer) 30.9 BUN/Creatinine Ratio 22.3 H Glucose 97 POC Glucose 131 H Estimat Average Glucose Hemoglobin A1c Lactate Calcium 9.1 Magnesium Total Bilirubin AST ALT Alkaline Phosphatase Total Protein Albumin Globulin Albumin/Globulin Ratio TSH 0.582 COVID-19 Eval Order SARS-CoV-2, RNA, NAAT 05/08/20 05/08/20 05/08/20 05:44 06:52 06:54 WBC RBC Hgb Hct MCV MCH MCHC RDW Std Deviation RDW Coeff of Reyes Plt Count MPV Immature Gran % (Auto) Neut % (Auto) Lymph % (Auto) Ritchie % (Auto) Eos % (Auto) Baso % (Auto) Neut # (Auto) Lymph # (Auto) Ritchie # (Auto) Eos # (Auto) Baso # (Auto) Immature Gran # (Auto) Sodium Potassium Chloride Carbon Dioxide Anion Gap BUN Creatinine Est Cr Clr Drug Dosing Est GFR ( Amer) Est GFR (Non-Af Amer) BUN/Creatinine Ratio Glucose POC Glucose 55 L* 104 H Estimat Average Glucose 177 Hemoglobin A1c 7.8 H Lactate Calcium Magnesium Total Bilirubin AST ALT Alkaline Phosphatase Total Protein Albumin Globulin Albumin/Globulin Ratio TSH COVID-19 Eval Order SARS-CoV-2, RNA, NAAT 05/08/20 05/08/20 08:13 12:00 WBC RBC Hgb Hct MCV MCH MCHC RDW Std Deviation RDW Coeff of Reyes Plt Count MPV Immature Gran % (Auto) Neut % (Auto) Lymph % (Auto) Ritchie % (Auto) Eos % (Auto) Baso % (Auto) Neut # (Auto) Lymph # (Auto) Ritchie # (Auto) Eos # (Auto) Baso # (Auto) Immature Gran # (Auto) Sodium Potassium Chloride Carbon Dioxide Anion Gap BUN Creatinine Est Cr Clr Drug Dosing Est GFR ( Amer) Est GFR (Non-Af Amer) BUN/Creatinine Ratio Glucose POC Glucose 108 H 142 H Estimat Average Glucose Hemoglobin A1c Lactate Calcium Magnesium Total Bilirubin AST ALT Alkaline Phosphatase Total Protein Albumin Globulin Albumin/Globulin Ratio TSH COVID-19 Eval Order SARS-CoV-2, RNA, NAAT Diagnostic Findings US arterial duplex LE RT CLINICAL HISTORY: non-healing R toe ulcer COMPARISON STUDY: None FINDINGS: There are diffuse atheromatous changes. There is triphasic flow within the right common femoral artery. There is triphasic flow within the superficial femoral artery. There is triphasic flow within the popliteal artery. There is a high velocity jet within the right posterior tibial artery consistent with a stenosis. There is diminished flow distal to the stenosis which is monophasic. No flow was visualized in the right peroneal. There is monophasic flow within the right anterior tibial. IMPRESSION: 1. 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 No flow visualized within the peroneal artery, possibly secondary to occlusion. 3. No evidence of hemodynamically significant common femoral superficial femoral or popliteal artery stenosis Medications Administered Current Inpatient Medications Allopurinol (Allopurinol 300 Mg Tab) 300 mg PO DAILY KERA Stop: 06/07/20 08:59 Last Admin: 05/08/20 08:33 Dose: 300 mg Documented by: Amlodipine Besylate (Amlodipine Besylate 5 Mg Tab) 2.5 mg PO PM KERA Stop: 06/06/20 20:59 Last Admin: 05/07/20 22:48 Dose: Not Given Documented by: Dextrose (Dextrose 50% 50 Ml Syringe) 25 - 50 ml IV UD PRN; Protocol PRN Reason: Hypoglycemia Protocol Stop: 06/06/20 19:40 Duloxetine HCl (Duloxetine Hcl 20 Mg Cap) 20 mg PO HS KERA Stop: 06/07/20 20:59 Last Admin: 05/07/20 22:48 Dose: 20 mg Documented by: Glucagon (Glucagon For Inj 1 Mg Vial) 1 mg SQ UD PRN; Protocol PRN Reason: Hypoglycemia Protocol Stop: 06/06/20 19:40 Glucose (Glucose 10 Tabs/Tube) 4 - 8 tabs PO UD PRN; Protocol PRN Reason: Hypoglycemia Protocol Stop: 06/06/20 19:40 Glucose (Glucose 40% Gel 15 Gm Tube) 15 - 30 gm PO UD PRN; Protocol PRN Reason: Hypoglycemia Protocol Stop: 06/06/20 19:40 Sodium Chloride (Nss 1000ml) 1,000 mls @ 80 mls/hr IV .[id number] KERA Stop: 05/08/20 20:40 Last Infusion: 05/08/20 14:56 Dose: 80 mls/hr Documented by: Piperacillin Sod/Tazobactam (Sod 3.375 gm/ Dextrose) 115 mls @ 28.75 mls/hr IV Q8H [facility]; Protocol Stop: 05/14/20 20:59 Last Admin: 05/08/20 13:05 Dose: 28.8 mls/hr Documented by: Insulin Aspart (Insulin Aspart 100 Units/Ml 3 Ml Pen) 0 units SC ACHS KERA Stop: 06/06/20 20:59 Last Admin: 05/08/20 13:04 Dose: 5 units Documented by: Levothyroxine Sodium (Levothyroxine Sodium 50 Mcg Tablet) 50 mcg PO DAILYBB [facility] Stop: 06/07/20 06:29 Last Admin: 05/08/20 05:57 Dose: 50 mcg Documented by: Miscellaneous (Carbohydrates For Hypoglycemia ) 15 - 30 gm PO UD PRN PRN Reason: Hypoglycemia Protocol Stop: 06/06/20 19:40 Miscellaneous Information (Pharmacy Glycemic Mgmt Consult) 1 ea N/A UD PRN; Protocol PRN Reason: Consult Stop: 06/06/20 19:47 Miscellaneous Information (Piperacill/Tazobac Consult Active) 1 ea N/A UD PRN PRN Reason: Consult Stop: 06/06/20 19:40 Vitamin D (Cholecalciferol 1,000 Units 25 Mcg Tab) 2,000 units PO DAILY KERA Stop: 06/07/20 08:59 Last Admin: 05/08/20 08:34 Dose: 2,000 units Documented by: PG Care Time/CCT Total # of Minutes Spent Total Time Spent with Patient: Total time spent is greater than 50% in coordination of care (as documented) at patient's floor/unit and/or counseling patient: Coding Level of Care Code 99738 Subseq Hosp Care Lvl 3 Diagnoses Diabetic foot infection E11.628; L08.9 Peripheral artery disease I73.9 Cellulitis L03.90 Cellulitis of right lower extremity L03.115 Generalized anxiety disorder F41.1 Depression, major, recurrent F33.9 Benign essential hypertension I10 CKD (chronic kidney disease) stage 3, GFR 30-59 ml/min N18.3 Gout M10.9 Hypothyroidism E03.9
[2020-05-08] MEDS: ASPIRIN 81 MG ECTAB PO SCH (16:33)
[2020-05-08] MEDS: DULoxetine HCL 20 MG CAP PO SCH (22:06)
[2020-05-08] MEDS: amLODIPine BESYLATE 5 MG TAB PO SCH (22:06)
[2020-05-09] MEDS: PIPERACILLIN/TAZOBACTAM 3.375 GM in DEXTROSE 5% 100 ML IV SCH ×3 (05:41→21:11)
[2020-05-09] MEDS: LEVOTHYROXINE SODIUM 50 MCG TABLET PO SCH (05:41)
[2020-05-09 07:31] LABS: Hematocrit (blood only) 28.7 % (42-52); Hemoglobin 9.4 g/dL (14.0-18.0); Mean Corpuscular Hemoglobin 29.9 pg (25-34); Mean Corpuscular Hgb Conc 32.8 g/dL (32-36); Mean Corpuscular Volume 91.4 fL (80-100); Mean Platelet Volume 9.4 fL (7.4-10.4); Platelet Count 359 K/uL (130-400); RDW Coefficient of Variation 13.8 % (11.5-14.5); RDW Standard Deviation 46.3 fL (36.4-46.3); Red Blood Count 3.14 M/uL (4.7-6.1); White Blood Count 11.67 K/uL (4.8-10.8)
[2020-05-09 07:53] LABS: BUN Creatinine Ratio 20.3 (10-20); Calcium 8.9 mg/dl (8.5-10.1); Creatinine Clr Calc Pharmacy 35.7 ml/min; Est GFR (African American) 36.7; Est GFR (Non-African American) 31.6; Potassium 4.1 mmol/L (3.5-5.1)
[2020-05-09] MEDS: INSULIN ASPART 100 UNITS/ML 3 ML PEN SC SCH ×4 (08:53→21:12)
[2020-05-09] MEDS: ASPIRIN 81 MG ECTAB PO SCH (08:54)
[2020-05-09] MEDS: allopurinoL 300 MG TAB PO SCH (08:54)
[2020-05-09] MEDS: CHOLECALCIFEROL 1,000 UNITS 25 MCG TAB PO SCH (08:54)
[2020-05-09] MEDS ORDERED: OR MISCELLANEOUS MED TOP ONE (09:35)
--- NOTE | 2020-05-09 13:38 | Hospitalist Progress Note ---
Date of Service May 09, 2020 Assessment & Plan (1) Diabetic ulcer of right great toe: Diabetic ulcer of the right great toe with gangrene in the setting of severe PAD. No evidence of osteomyelitis on XR. Vascular surgery consult pending with Dr. Sanders. Last HgbA1C was 7.8% on 05-08-20. Pharmacy glycemic management consult placed on admission. Continue IV Zosyn. [place] eschar with betadine daily. May need orthotics referral for offloading pending Dr. Sanders's plan. (2) Peripheral artery disease: Vascular surgery consult pending. Arterial duplex of the RLE showing high-grade stenosis of the right posterior tibial artery. (3) Acute kidney injury superimposed on CKD: Cr improved to 1.98. Baseline of ~2. IVF discontinued. Losartan on hold. Consider resuming as he is hypertensive at 167/80. Recheck BMP in AM. (4) Gout: Continue Allopurinol. (5) Benign essential hypertension: BP elevated at 167/80. Patient is asymptomatic. Losartan on hold d/t CAROLYNE. Consider restarting if Cr stays stable. Continue amlodipine. (6) Hypothyroidism: TSH 0.582. Continue levothyroxine. (7) Generalized anxiety disorder: SETH with depression. Continue cymbalta. (8) Diabetes mellitus: Last HgbA1C 7.8% of 05-08-20. Glimepiride on hold. BSGs ACHS. Admission and Anticipated Discharge Date Admission Date: May 07, 2020 Subjective 79 yo male admitted for diabetic ulcer of the right great toe with gangrene in the setting of severe PAD. Patient denies any pain this morning. Denies fever or chills. Awaiting vascular surgery consult with Dr. Sanders. Review of Systems Constitutional: no fever and no chills Eyes: no worsening vision Ear, Nose, Mouth, Throat: no dizziness Respiratory: no dyspnea Cardiovascular: no chest pain Gastrointestinal: no abdominal pain, no nausea and no vomiting Psychiatric: no confusion Physical Exam Physical Exam: Temp Pulse Resp BP Pulse Ox 36.9 C 82 18 167/80 H 95 05/09/20 08:28 05/09/20 08:28 05/09/20 08:28 05/09/20 08:28 05/09/20 08:28 Patient is hypertensive at 167/80. He is asymptomatic. Constitutional: average body habitus; no acute distress ENMT: Ears: no hearing impairment Neck: trachea midline, no thyromegaly Respiratory: normal respiratory effort, lungs clear to auscultation Cardiovascular: RRR, no murmur, no edema Gastrointestinal (Abdomen): Inspection/Auscultation: normal bowel sounds Percussion/Palpation: abdomen soft; abdomen nontender Psychiatric: A+Ox3, euthymic affect Results & Data Results & Data ([facility]) Vital Signs (Past 12 Hours) Vital Signs Temp Pulse Resp BP Pulse Ox 05/09/20 08:28 36.9 C 82 18 167/80 H 95 05/09/20 03:15 173/87 H PG Care Time/CCT Total # of Minutes Spent Total Time Spent with Patient: Total time spent is greater than 50% in coordination of care (as documented) at patient's floor/unit and/or counseling patient: C[place] [address] Subseq Hosp Care Lvl 2 Patient Type Established Medical Decision Making Moderate Complexity Diagnoses Diabetic ulcer of right great toe E11.621; L97.519 Peripheral artery disease I73.9 Acute kidney injury superimposed on CKD N17.9; N18.9 Gout M10.9 Benign essential hypertension I10 Hypothyroidism E03.9 Generalized anxiety disorder F41.1 Diabetes mellitus E11.9
--- NOTE | 2020-05-09 14:24 | Pharmacy Report ---
Pharmacy Glycemic Short Note 2 - Date of Service May 09, 2020 - Glycemic Short BSG Results (Last 24 hours): 05/08/20 05/08/20 05/09/20 17:43 20:52 06:57 Glucose 136 H POC Glucose 114 H 147 H 05/09/20 05/09/20 08:08 12:01 Glucose POC Glucose 138 H 154 H OUTPATIENT ANTIDIABETIC REGIMEN: * Glimepiride * A1c = 8.3% on 12/30/19 * A1c = 7.8% on 05/08/20 ASSESSMENT: * 79yo T2DM male with adequate outpatient control per recent A1c * Pt is maintained on oral antidiabetic agents as an outpatient * Oral agents are not recommended for inpatient use d/t drug interactions, changing PO intake, and difficulty titrating for acute hyper/hypoglycemia. ADA recommends re-initiating outpatient oral agents 1-2 days prior to discharge if/when appropriate if they were held on admission. * Will hold oral agents for admission and utilize SQ basal bolus insulin regimen which is the recommended regimen for inpatient glycemic control. * Will initiate weight based insulin dosing for insulin hugh patient and titrate based on BSG trends. * Will hold off on basal insulin since pt had an AM fasting low on 05/08/20 (may have been secondary to outpatient glimepiride + NovoLog at HS 05/07/20 PM + CAROLYNE). * Will start low dose basal insulin when AM fasting BSG > 140 mg/dl. Continue bolus insulin monotherapy per weight based CF/CR and titrate based on BSG trends. * Goal is to maintain BSGs <200 mg/dl (ideally <150 mg/dl) to facilitate wound healing. * Also, recommend zinc, vitamin C and protein supplementation to promote wound healing in wound care patients * Zinc: 50 mg elemental zinc (e.g., 220 mg zinc sulfate) PO three times per day until wound healed. * Vitamin C: 500-3000mg/day depending on whether it causes soft stool, then back off * Protein: may consult dietary for protein supplement recommendation. Could consider boost glucose control supplement PLAN FOR INPATIENT GLYCEMIC CONTROL: * Hold outpatient oral diabetes medications * Basal insulin * N/A * Bolus insulin * NovoLog per scale ACHS or Q6hrs while NPO * Goal Range: Low 110 mg/dL - High 140 mg/dL * Correction Factor: 30 mg/dL/unit * Nutritional / Prandial insulin per carb ratio of 1 unit per 10 grams CHO consumed
[2020-05-09] MEDS: DULoxetine HCL 20 MG CAP PO SCH (21:11)
[2020-05-09] MEDS: amLODIPine BESYLATE 5 MG TAB PO SCH (21:11)
[2020-05-10] MEDS: PIPERACILLIN/TAZOBACTAM 3.375 GM in DEXTROSE 5% 100 ML IV SCH ×3 (05:33→20:47)
[2020-05-10] MEDS: LEVOTHYROXINE SODIUM 50 MCG TABLET PO SCH (05:34)
[2020-05-10 06:40] LABS: BUN Creatinine Ratio 19.6 (10-20); Calcium 8.7 mg/dl (8.5-10.1); Creatinine Clr Calc Pharmacy 32.9 ml/min; Est GFR (African American) 33.7; Est GFR (Non-African American) 29.1; Potassium 4.2 mmol/L (3.5-5.1)
[2020-05-10] MEDS: INSULIN ASPART 100 UNITS/ML 3 ML PEN SC SCH ×4 (08:10→22:11)
[2020-05-10] MEDS: allopurinoL 300 MG TAB PO SCH (08:11)
[2020-05-10] MEDS: CHOLECALCIFEROL 1,000 UNITS 25 MCG TAB PO SCH (08:11)
[2020-05-10] MEDS: ASPIRIN 81 MG ECTAB PO SCH (08:11)
--- NOTE | 2020-05-10 09:36 | Hospitalist Progress Note ---
Date of Service May 10, 2020 Assessment & Plan (1) Cellulitis of right lower extremity: (2) Cellulitis: (3) Diabetic foot infection: - Ulcer of Great R Toe with surrounding Cellulitis involving the foot - continue Zosyn IV - WBC down to 11 from 15, afebrile - XR without obvious signs of osteomyelitis - toe appears to be dry gangrene, no sensation, tissue very dark almost black - Vascular surgery recommending more IV abx for few days and plan on amputation later in the week. Also recommending pt ambulates - PT/OT consulted (4) Diabetes mellitus: -Hold glimepirid -Consult in service educator -SSI and basal bolus -Pharmacy consulted for assistance in glucose management -Diabetic Edu consult (5) Peripheral artery disease: severe PAD, high grade stenosis of right posterior tibial - start on aspirin 81mg daily - Foot is warm, not cold -Vascular surgery consulted- appreciate recs - plan on toe amputation later in the week after more administration of IV abx (6) Generalized anxiety disorder: (7) Depression, major, recurrent: -Continue Duloxetine (8) Benign essential hypertension: -Continue home Amlodipine -Hold Losartan due to CAROLYNE -BP elevated this morning, fluids off. Can use iv hydralazine if needed. (9) CKD (chronic kidney disease) stage 3, GFR 30-59 ml/min: - CAROLYNE on CKD - now resolved - Creatinine mildly elevated at 2.26 from baseline ~2 - Holding Losartan, monitor BP - Initially on IVF, now off. (10) Hypothyroidism: -TSH 0.582 -Continue home Levothyroxine (11) Gout: - Cont allopurinol DVT ppx: scds, ambulatory CODE: Conditional - NO INTUBATION, CPR only Admission and Anticipated Discharge Date Admission Date: May 07, 2020 Supervising Physician Co-Signing Physician Notes Attending Attestation: Pt seen/examined, chart reviewed, care plan d/w MARIE Dunaway. I agree w/ the quintana components of her documentation. Pt w/o complaints of fevers/chills, foot pain on right, cp, dyspnea during my rounds. BPs elevated; normal temps gen - NAD eyes - strabismus, left eye neck - no JVD heart - RRR, s1 s2 lungs - CTA b/l ext - pulses right foot about 1+ skin - gangrene entire right great toe; mild erythema much of dorsum of right foot A/P: 1. gangrene right great toe 2. cellulitis right foot 3. PAD right leg 4. uncontrolled HTN cont IV abx appreciate vascular surgery consult may need intervention for #3 amputation for #1 planned regardless adjust BP meds Bro Rangel MD Subjective The patient was seen and examined this morning. Pt has been walking on his foot, no pain. Reports he cannot tell if redness is improving. He Denies fever, chills or sweats. Pt reports he used a callous softening lotion and removed a callous from his big toe a while ago, and that it worsened over a few weeks, then ended up looking black. He then sought out care from PCP last , who referred him to the hospital. Vascular surgery at bedside during vising conducting arterial doppler - note that they would like infection to improve prior to taking the pt to the OR. In regards to diabetic management - he uses glimepiride 1 mg daily. When asked about how he manages his glucose, he states he does not check his sugar at home. Looks at food labels and if it has a lot of sugar in it, he "only has a little". Pt does not seem to understand carb counting or the importance of glucose management for adequate wound healing. Will ask DM edu to see pt. Review of Systems Review of Systems: Constitutional: No fever, sweats or chills Eyes: No diplopia, no worsening or blurred vision ENT: normal hearing, no trouble swallowing Respiratory: No cough, sputum, dyspnea at rest or on exertion Cardiovascular: No chest pain, tightness or palpitations Abdomen: No pain, nausea, vomiting, diarrhea or constipation Musculoskeletal: No joint pain, calf pain, swelling Neurologic: No weakness, numbness/tingling, or balance problems Psychiatric: No anxiety or depression Skin: No rash or itch Physical Exam Physical Exam: General: awake, alert, no apparent distress Head: Normocephalic, atraumatic ENT: PERRL, EOMI, + left sided eyelid droop and lateral gaze. No pharyngeal exudate, mucous membranes moist Chest: Clear to auscultation, on room air, no adventitious breath sounds Cardiac: Regular rate and rhythm, no murmur, no JVD, normal peripheral pulses, good capillary refill Abdominal: NABS x 4 quadrants, soft, nondistended, nontender to palpation, no rebound or guarding Extremities: + R great toe with backened eschar, surrounding light red erythema involving the dorsal foot, does not pass the ankle. +dorsalis pedis pulses present bilaterally. Normal inspection, no peripheral edema or erythema, calfs nontender to palpation Psych: Normal mood and affect. Neuro: AAO x 3, no gross motor deficits, speech is clear, + peripheral sensory deficits in the right foot with dulled sensation to light touch. Results & Data Results & Data ([facility]) Vital Signs (Past 12 Hours) Vital Signs Temp Pulse Resp BP BP Pulse Ox 05/10/20 07:16 37.0 C 76 16 166/86 H 95 05/10/20 01:15 153/77 H 05/09/20 23:05 37.0 C 82 16 181/86 H 97 PG Care Time/CCT Total # of Minutes Spent Total Time Spent with Patient: Total time spent is greater than 50% in coordination of care (as documented) at patient's floor/unit and/or counseling patient: Coding Level of Care Code 47878 Subseq Hosp Care Lvl 2 Diagnoses Cellulitis of right lower extremity L03.115 Cellulitis L03.90 Diabetic foot infection E11.628; L08.9 Diabetes mellitus E11.9 Peripheral artery disease I73.9 Generalized anxiety disorder F41.1 Depression, major, recurrent F33.9 Benign essential hypertension I10 CKD (chronic kidney disease) stage 3, GFR 30-59 ml/min N18.3 Hypothyroidism E03.9 Gout M10.9
--- NOTE | 2020-05-10 11:31 | Consultation ---
Date of Consultation May 10, 2020 Assessment & Plan (1) Gangrene of toe of right foot: Pt with dry gangrene of R great toe with superimposed pseudomonas infection and local cellulitis. Pt discussed with Dr Sanders. After review of arterial US, recommends obtain ESMER to confirm disease, since none was performed with the arterial US. Pt with decent doppler signals to foot. If PAD is truly mild/moderate, will likely not recommend revascularization and will proceed with great toe amputation after cellulitis improves. Will reeval pt later this week. History of Present Illness Reason for Consultation: RLE gangrene Attending Physician: Bro Rangel History of Present Illness 80 yo m with hx of DMII, CKD, depression, heart block, chronic anemia, HTN, carotid stenosis, gout, hypothyroidism, admitted wtih RLE great toe gangrene, seen in consultation today for same. Per pt, he noted a callous on his R great toe about 1 month ago and used a "skin or callous softener" on it, which caused his skin to peel there. He manually pulled the callous off. He then developed discoloration and edema and erythema to the area which has worsened over past 2 weeks or so. He saw his PCP 4 days ago, who sent him to [facility] ED. Pt denies pain in foot or toes. States he has hx of "drop foot" to R foot, and typically uses a cane, walker, or cart to get around d/t instability when walking. Denies claudication, rest pain, prior nonhealing wounds. Denies SOLIS, fever, chest pain, SOB, abd pain, N/V, other complaints. RLE arterial US demonstrates mild/moderate PAD, but no ESMER was performed. Allergies Allergy/AdvReac Type Severity Reaction Status Date / Time Sulfa (Sulfonamide Allergy Unknown UNSURE OF Verified 05/07/20 13:29 Antibiotics) REACTION, WAS TOLD BY MOTHER Home Medications Medication Instructions Recorded Confirmed Type glimepiride 1 mg tablet 1 mg PO QAM #90 tab 09/18/19 05/07/20 Rx cholecalciferol (vitamin D3) 50 50 mcg PO DAILY 12/30/19 05/07/20 History mcg (2,000 unit) capsule duloxetine 20 mg capsule,delayed 20 mg PO DAILY #90 cap 12/30/19 05/07/20 Rx release vitamin B complex 1 tab PO DAILY 12/30/19 05/07/20 History levothyroxine 50 mcg tablet 50 mcg PO DAILY #90 tab 12/31/19 05/07/20 Rx amlodipine 2.5 mg tablet 2.5 mg PO PM #90 tab 01/07/20 05/07/20 Rx losartan 100 mg tablet 100 mg PO DAILY #90 tab 01/22/20 05/07/20 Rx multivitamin 1 tab PO DAILY 01/22/20 05/07/20 History allopurinol 300 mg tablet 300 mg PO DAILY #90 tab 04/01/20 05/07/20 Rx Patient History Medical History Anxiety and depression Benign essential hypertension Cellulitis of right lower extremity CKD (chronic kidney disease) stage 3, GFR 30-59 ml/min Diabetes mellitus, type 2 Diabetic foot infection Diabetic peripheral neuropathy Gout Hearing deficit 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 Hypothyroidism Occlusion and stenosis of right carotid artery Poor historian Surgical History History of anesthesia reaction COMBATIVE WITH KHAI (REQUIRED RESTRAINTS) History of cataract surgery History of tooth extraction History of total hip arthroplasty LEFT Family History Mother Diabetes Father Esophageal cancer Social History Smoking Status: Never smoker Second Hand Exposure: No; Do You Dip or Chew Tobacco: No; Hx Alcohol Use: No Hx Substance Use: No Preferred Language: Frisian Communication Ability: Effective Communication Ability Comment: hard of hearing Clinical Staff Educator Required: No Beliefs That Will Affect Care: None marital status: Current Living Situation: Spouse Other Information That Helps Us Care for You: No Feels Safe at Home: Yes Safety Concerns: Feels Safe At This Time Assistive Devices: Walker Review of Systems Review of Systems: All systems reviewed & are unremarkable except as noted in HPI & below Physical Exam Constitutional: WD/WN, vitals as above well developed, healthy appearing, cooperative and comfortable; not in distress Eyes: PERRL, conjunctivae normal, anicteric sclerae ENMT: Ears: + hearing impairment (mild MINTO) Neck: trachea midline Respiratory: normal respiratory effort, lungs clear to auscultation Auscultation: + diminished lung sounds Cardiovascular: Rate/Rhythm: regular rate and regular rhythm Vessels: femoral pulses present, posterior tibial pulses present (LLE +1, RLE nonpalpable but excellent signal with doppler), dorsalis pedis pulses present (LLE +2, RLE nonpalpable d/t edema but excellet with doppler) and radial pulses present; + abnormal peripheral pulses Extremities: normal capillary refill (except R great toe), + pedal edema (RLE) and + edema (RLE) Gastrointestinal (Abdomen): normal bowel sounds, soft, nontender, no hepatosplenomegaly Musculoskeletal: Extremities: strength 5/5 throughout Skin: + erythema (R forefoot and foot) and + eschar (R great toe distal to MTP dry mild odor) Neurologic: moves all extremities and awake; no focal motor deficits and not confused Psychiatric: A+Ox3, euthymic affect Results & Data ([facility]) Vital Signs (Past 12 Hours) Vital Signs Temp Pulse Resp BP BP Pulse Ox 05/10/20 07:16 37.0 C 76 16 166/86 H 95 05/10/20 01:15 153/77 H
--- NOTE | 2020-05-10 15:54 | Ultrasound Report ---
US ankle/brachial index comp CLINICAL HISTORY: Toe gangrene. Peripheral artery disease. COMPARISON STUDY: No previous studies for comparison. FINDINGS: Brachial arm systolic arterial pressures measured 173 mmHg on the right and 176 mmHg on the left. Posterior tibial systolic arterial pressures measured 120 mmHg on the right and 185 mmHg on the left. Dorsalis pedis systolic arterial pressures measured 140 mmHg on the right and 196 mmHg on the left. Calculated ankle brachial indices are 0.8 on the right and 1.1 and the left IMPRESSION: 1. Normal left ankle-brachial index of 1.1 2. Mildly diminished right ankle brachial index of 0.8 ACT 112: Negative or not required by law. Electronically signed by: Eulalio Shah M.D. 05/10/2020 3:52 PM
[2020-05-10] MEDS: DULoxetine HCL 20 MG CAP PO SCH (20:47)
[2020-05-10] MEDS: amLODIPine BESYLATE 5 MG TAB PO SCH (20:47)
[2020-05-11] MEDS: PIPERACILLIN/TAZOBACTAM 3.375 GM in DEXTROSE 5% 100 ML IV SCH ×3 (05:13→21:00)
[2020-05-11] MEDS: LEVOTHYROXINE SODIUM 50 MCG TABLET PO SCH (05:16)
[2020-05-11 07:28] LABS: BUN Creatinine Ratio 20.5 (10-20); Calcium 9.3 mg/dl (8.5-10.1); Creatinine Clr Calc Pharmacy 32.2 ml/min; Est GFR (African American) 32.8; Est GFR (Non-African American) 28.3; Potassium 4.1 mmol/L (3.5-5.1)
[2020-05-11] MEDS: amLODIPine BESYLATE 5 MG TAB PO SCH ×2 (08:11→20:52)
[2020-05-11] MEDS: CHOLECALCIFEROL 1,000 UNITS 25 MCG TAB PO SCH (08:12)
[2020-05-11] MEDS: allopurinoL 300 MG TAB PO SCH (08:12)
[2020-05-11] MEDS: ASPIRIN 81 MG ECTAB PO SCH (08:12)
[2020-05-11] MEDS: carvediloL 3.125 MG TAB PO SCH ×2 (08:12→20:52)
[2020-05-11] MEDS: INSULIN ASPART 100 UNITS/ML 3 ML PEN SC SCH ×4 (08:26→21:00)
--- NOTE | 2020-05-11 10:53 | Pharmacy Report ---
Pharmacy Glycemic Short Note 2 - Date of Service May 11, 2020 - Glycemic Short BSG Results (Last 24 hours): 05/10/20 05/10/20 05/10/20 12:20 17:09 20:55 Glucose POC Glucose 114 H 134 H 129 H 05/11/20 05/11/20 06:21 08:10 Glucose 123 H POC Glucose 123 H OUTPATIENT ANTIDIABETIC REGIMEN: * Glimepiride * A1c = 8.3% on 12/30/19 * A1c = 7.8% on 05/08/20 ASSESSMENT: 05/11/20: * Mr Cardenas's BSGs have been well-controlled on current Novolog parameters. * No changes required at this time. 05/09/20 * 79yo T2DM male with adequate outpatient control per recent A1c * Pt is maintained on oral antidiabetic agents as an outpatient * Oral agents are not recommended for inpatient use d/t drug interactions, changing PO intake, and difficulty titrating for acute hyper/hypoglycemia. ADA recommends re-initiating outpatient oral agents 1-2 days prior to discharge if/when appropriate if they were held on admission. * Will hold oral agents for admission and utilize SQ basal bolus insulin regimen which is the recommended regimen for inpatient glycemic control. * Will initiate weight based insulin dosing for insulin hugh patient and titrate based on BSG trends. * Will hold off on basal insulin since pt had an AM fasting low on 05/08/20 (may have been secondary to outpatient glimepiride + NovoLog at HS 05/07/20 PM + CAROLYNE). * Will start low dose basal insulin when AM fasting BSG > 140 mg/dl. Continue bolus insulin monotherapy per weight based CF/CR and titrate based on BSG trends. * Goal is to maintain BSGs <200 mg/dl (ideally <150 mg/dl) to facilitate wound healing. * Also, recommend zinc, vitamin C and protein supplementation to promote wound healing in wound care patients * Zinc: 50 mg elemental zinc (e.g., 220 mg zinc sulfate) PO three times per day until wound healed. * Vitamin C: 500-3000mg/day depending on whether it causes soft stool, then back off * Protein: may consult dietary for protein supplement recommendation. Could consider boost glucose control supplement PLAN FOR INPATIENT GLYCEMIC CONTROL: * Hold outpatient oral diabetes medications * Basal insulin * N/A * Bolus insulin * NovoLog per scale ACHS or Q6hrs while NPO * Goal Range: Low 110 mg/dL - High 140 mg/dL * Correction Factor: 30 mg/dL/unit * Nutritional / Prandial insulin per carb ratio of 1 unit per 10 grams CHO consumed
[2020-05-11] MEDS: DULoxetine HCL 20 MG CAP PO SCH (20:52)
--- NOTE | 2020-05-11 21:09 | Hospitalist Progress Note ---
Date of Service May 11, 2020 Assessment & Plan (1) Gangrene of toe of right foot: right great toe. cont zosyn. recent culture w/ pseudomonas. vascular surgery, Dr Sanders, to perform amputation - timing uncertain, but likely later this week. has component of PAD - uncertain if he needs arteriogram/intervention - defer to Dr Sanders. (2) Cellulitis of right lower extremity: dorsum of right foot - improving. in setting of gangrene R great toe. cont zosyn. (3) Diabetic foot infection: Ulcer of R Great Toe with subsequent development of gangrene and cellulitis involving the right foot. This is in setting of probable diabetic neuropathy and right foot drop. Continue IV zosyn. Vascular surgery intervention on right great toe this week. Last 5+ A1cs all >7% -- desperately needs better DM control. Needs AFO device for right foot down the line. (4) Diabetes mellitus: -Hold glimepirid -Consult music educator -SSI and basal bolus -Pharmacy consulted for assistance in glucose management -Diabetic Edu consult (5) Peripheral artery disease: severe PAD, high grade stenosis of right posterior tibial artery. cont asa. should be on statin. defer management to vascular surgery. (6) Generalized anxiety disorder: cont cymbalta (7) Depression, major, recurrent: continue Duloxetine (8) Benign essential hypertension: Continue home Amlodipine but have increased to BID dosing Holding Losartan due to CAROLYNE Added lowdose coreg 3.125mg BID (9) CKD (chronic kidney disease) stage 3, GFR 30-59 ml/min: baseline Cr about 2 BMP am for stability (10) Hypothyroidism: TSH 0.582 Continue home Levothyroxine (11) Gout: Cont allopurinol for gout prophylaxis (12) Dysphagia: frequent episodes at home witnessed episode during my visit today speech consultation requested (13) Right foot drop: long-standing, 8-10 years per his recollection contributes to gait issues ultimately needs to have AFO (14) DVT prophylaxis: add heparin 5000 BID updated family today Admission and Anticipated Discharge Date Admission Date: May 07, 2020 Subjective patient w/o complaints during the visit. feeling ok. asks questions about timing of amputation of right great toe, whether he needs surgery for PAD, etc. eating well. c/o right leg weakness for 8-10 years. asks if the PAD is contributing. tried what sounds like AFO device years ago and he stated "I hated that thing.". he also has episodes of dysphagia "when I eat or drink too fast". in fact he just finished his supper and was coughing uncontrollably during my visit. Review of Systems Constitutional: no fever and no chills Respiratory: no dyspnea Cardiovascular: no chest pain Gastrointestinal: no abdominal pain Physical Exam Constitutional: well developed and well nourished; no acute distress and no altered mental status Eyes: lateral strabismus left eye (baseline) ENMT: external ear and nose normal, oropharynx normal Respiratory: normal respiratory effort, lungs clear to auscultation Cardiovascular: Rate/Rhythm: regular rate and regular rhythm Heart Sounds: normal S1 and normal S2; no murmur Vessels: no JVD Extremities: + edema (Minimal - right foot) pulses right foot ~1+; cap refill 2-3 seconds; pulses left foot 2+ Gastrointestinal (Abdomen): normal bowel sounds, soft, nontender, no hepatosplenomegaly Skin: gangrene of R great toe - color is black, nonviable, cool to touch; cellulitis dorsum right foot cont to improve with minimal erythema today Neurologic: right foot drop but otherwise other muscles of RUE and RLE are 5/5; left foot with normal dorsi/plantarflexion Psychiatric: Orientation: alert and oriented x 3 Results & Data Results & Data ([facility]) Vital Signs (Past 12 Hours) Vital Signs Temp Pulse Pulse Resp BP Pulse Ox 05/11/20 20:50 92 H 167/92 H 05/11/20 15:16 36.5 C 78 16 157/80 H 97 05/11/20 09:31 134/66 Laboratory Results Laboratory Results - last 24 hr 05/11/20 05/11/20 05/11/20 06:21 08:10 12:12 Sodium 138 Potassium 4.1 Chloride 106 Carbon Dioxide 25 Anion Gap 8.0 BUN 44 H Creatinine 2.16 H Est Cr Clr Drug Dosing 32.2 Est GFR ( Amer) 32.8 Est GFR (Non-Af Amer) 28.3 BUN/Creatinine Ratio 20.5 H Glucose 123 H POC Glucose 123 H 140 H Calcium 9.3 05/11/20 05/11/20 17:23 20:29 Sodium Potassium Chloride Carbon Dioxide Anion Gap BUN Creatinine Est Cr Clr Drug Dosing Est GFR ( Amer) Est GFR (Non-Af Amer) BUN/Creatinine Ratio Glucose POC Glucose 132 H 137 H Calcium PG Care Time/CCT Total # of Minutes Spent Total Time Spent with Patient: Total time spent is greater than 50% in coordination of care (as documented) at patient's floor/unit and/or counseling patient: Coding Level of Care Code 47262 Subseq Hosp Care Lvl 3 Diagnoses Gangrene of toe of right foot I96 Cellulitis of right lower extremity L03.115 Diabetic foot infection E11.628; L08.9 Diabetes mellitus E11.9 Peripheral artery disease I73.9 Generalized anxiety disorder F41.1 Depression, major, recurrent F33.9 Benign essential hypertension I10 CKD (chronic kidney disease) stage 3, GFR 30-59 ml/min N18.3 Hypothyroidism E03.9 Gout M10.9 Dysphagia R13.10 Right foot drop M21.371 DVT prophylaxis Z29.9
[2020-05-12] MEDS: PIPERACILLIN/TAZOBACTAM 3.375 GM in DEXTROSE 5% 100 ML IV SCH (05:25)
[2020-05-12] MEDS: LEVOTHYROXINE SODIUM 50 MCG TABLET PO SCH (05:25)
[2020-05-12 07:15] LABS: BUN Creatinine Ratio 19.3 (10-20); Calcium 9.1 mg/dl (8.5-10.1); Creatinine Clr Calc Pharmacy 28.1 ml/min; Est GFR (African American) 27.9; Est GFR (Non-African American) 24.1; Potassium 4.3 mmol/L (3.5-5.1)
[2020-05-12] MEDS: amLODIPine BESYLATE 5 MG TAB PO SCH ×2 (08:16→21:10)
[2020-05-12] MEDS: allopurinoL 300 MG TAB PO SCH (08:17)
[2020-05-12] MEDS: ASPIRIN 81 MG ECTAB PO SCH (08:17)
[2020-05-12] MEDS: CHOLECALCIFEROL 1,000 UNITS 25 MCG TAB PO SCH (08:17)
[2020-05-12] MEDS: carvediloL 3.125 MG TAB PO SCH (08:17)
[2020-05-12] MEDS: HEPARIN SOD 5,000 UNIT/0.5 ML VIAL SQ SCH ×2 (08:18→21:12)
[2020-05-12] MEDS: INSULIN ASPART 100 UNITS/ML 3 ML PEN SC SCH ×4 (08:39→21:16)
[2020-05-12 11:07] LABS: Appearance Urine Clear (Clear); Bacteria Urine Automated Negative (Negative); Bilirubin Urine Negative (Negative); Blood Urine 1+ (Negative); Color Urine Yellow; Glucose Urine UA Negative (Negative); Ketones Urine Negative (Negative); Leukocyte Esterase Urine Negative (Negative); Nitrite Urine Negative (Negative); Protein Urine 2+ (Negative); Urobilinogen Urine Negative (Negative)
[2020-05-12 11:47] LABS: Creatinine Urine Random 92.4 mg/dl
[2020-05-12] MEDS: ADVANCED PROBIOTIC 1250 MG CAPSULE PO SCH (12:25)
--- NOTE | 2020-05-12 13:49 | Surgery Progress Note ---
Date of Service May 12, 2020 Assessment & Plan (1) Gangrene of toe of right foot: Pt with RLE great toe gangrene. Erythema/edema improved. Pt also seen by Dr Sanders. Planning for RLE great toe amputation in OR on 05/14/20. Pt agreeable. Can probably be discharged after toe amputation if medically stable as determined by hospitalist team. Admission and Anticipated Discharge Date Admission Date: May 07, 2020 Subjective Pt with RLE great toe gangrene seen in f/u today. Pt denies any new complaints. Is anxious for surgery. Review of Systems Review of Systems: All systems reviewed & are unremarkable except as noted in HPI & below Physical Exam Constitutional: WD/WN, vitals as above cooperative and comfortable Cardiovascular: Rate/Rhythm: regular rate and regular rhythm Vessels: femoral pulses present, posterior tibial pulses present (LLE +1, RLE nonpalpable but excellent signal with doppler), dorsalis pedis pulses present (LLE +2, RLE nonpalpable d/t edema but excellet with doppler) and radial pulses present; + abnormal peripheral pulses Extremities: normal capillary refill (except R great toe), + pedal edema (RLE) and + edema (RLE) Skin: + erythema (R forefoot and foot) and + eschar (R great toe distal to MTP dry mild odor) Psychiatric: A+Ox3, euthymic affect Results & Data ([place]) Vital Signs (Past 12 Hours) Vital Signs Temp Pulse Resp BP Pulse Ox 05/12/20 07:43 36.6 C 73 16 172/89 H 97
[2020-05-12] MEDS ORDERED: SODIUM CHLORIDE 0.9% 500 ML IV SCH (19:30)
[2020-05-12] MEDS ORDERED: AZTREONAM 1,000 MG in DEXTROSE 5% 100 ML IV SCH (20:00)
[2020-05-12] MEDS: AZTREONAM 1,000 MG in DEXTROSE 5% 100 ML IV SCH (20:01)
[2020-05-12] MEDS: DULoxetine HCL 20 MG CAP PO SCH (21:09)
[2020-05-12] MEDS: carvediloL 6.25 MG TAB PO SCH (21:09)
[2020-05-12] MEDS: metroNIDAZOLE 500 MG/100 ML BAG IV SCH (21:20)
[2020-05-12] MEDS: THIAMINE HCL 100 MG TAB PO SCH (22:05)
[2020-05-12] MEDS: PYRIDOXINE HCL 50 MG TAB PO SCH (22:05)
[2020-05-12] MEDS: CYANOCOBALAMIN 500 MCG TABLET (VITAMIN B-12) PO SCH (22:05)
--- NOTE | 2020-05-12 23:11 | Hospitalist Progress Note ---
Date of Service May 12, 2020 Assessment & Plan (1) CAROLYNE (acute kidney injury): Cr 2.4 today. FeNa = 1.1 suggesting intrinsic cause - ATN, AIN, etc. Certainly could have AIN from pip/tazo use. No recent hypotension to cause ATN but could have had sepsis earlier in hospital stay leading to sepsis-associated ATN but doubt. STOP pip-tazo. Consider urine eosiniophils. No diffuse rash to support AIN but rash is not that common w/ such. Check cbc w/ diff in am - see if eosinophils are present on diff. Give gentle fluid overnight. Repeat BMP am. (2) Gangrene of toe of right foot: right great toe - to OR Sunday with Dr Sanders for amputation. Due to CAROLYNE stop the zosyn. Change to aztreonam + flagyl. recent culture w/ pseudomonas. has component of PAD but no plans for intervention per Dr Sanders at this time. (3) Cellulitis of right lower extremity: dorsum of right foot - improving. in setting of gangrene R great toe. see above re: abx. (4) Diabetic foot infection: Ulcer of R Great Toe with subsequent development of gangrene and cellulitis involving the right foot. This is in setting of probable diabetic neuropathy and right foot drop. Continue IV abx - see above. Vascular surgery to perform right great toe amputation this Sunday. Last 5+ A1cs all >7% -- desperately needs better DM control. Needs AFO device for right foot down the line. DM education. (5) Diabetes mellitus: -Hold glimepirid -Consult extension educator -SSI and basal bolus -Pharmacy consulted for assistance in glucose management -Diabetic Edu consult (6) Peripheral artery disease: severe PAD, high grade stenosis of right posterior tibial artery. cont asa. should be on statin. defer management to vascular surgery. no intervention planned at the moment. (7) Generalized anxiety disorder: cont cymbalta (8) Depression, major, recurrent: continue Duloxetine (9) Benign essential hypertension: Continue home Amlodipine but have increased to BID dosing Holding Losartan due to CAROLYNE Added lowdose coreg -- increase to 6.25mgBID BPs are improving (10) CKD (chronic kidney disease) stage 3, GFR 30-59 ml/min: baseline Cr about 2 BMP am for stability (11) Hypothyroidism: TSH 0.582 Continue home Levothyroxine (12) Gout: Cont allopurinol for gout prophylaxis (13) Dysphagia: frequent episodes at home speech consultation and recs appreciated (14) Right foot drop: long-standing, 8-10 years per his recollection contributes to gait issues ultimately needs to have AFO (15) DVT prophylaxis: heparin 5000 BID updated family yesterday Admission and Anticipated Discharge Date Admission Date: May 07, 2020 Subjective discussed care with Dr Sanders plan - OR Sunday for R great toe amputation discussed PAD - given ESMER results no intervention planned on right leg vasculature. if s/p amputation his surgical site does not heal well then reconsideration of a-gram may be entertained. patient without any complaints during the visit today. he requests b-vitamins - takes b-complex at home and wants to resume. denies any dyspnea, abd pain, cp, RLE pain. he understands plan for Sunday for amputation. Review of Systems Constitutional: no fever, no chills and no anorexia Respiratory: no cough, no dyspnea and no dyspnea on exertion Cardiovascular: no chest pain Gastrointestinal: no abdominal pain, no vomiting and no diarrhea/loose stools Physical Exam Constitutional: well developed and well nourished; no acute distress and no altered mental status ENMT: external ear and nose normal, oropharynx normal Respiratory: normal respiratory effort, lungs clear to auscultation Cardiovascular: Rate/Rhythm: regular rate and regular rhythm Heart Sounds: normal S1 and normal S2; no murmur Vessels: no JVD Extremities: + edema (Minimal - right foot) Gastrointestinal (Abdomen): normal bowel sounds, soft, nontender, no hepatosplenomegaly Skin: unchanged appearance of gangrenous right great toe; unchanged appearance of right foot cellulitis (mild at this time) Psychiatric: Orientation: alert and oriented x 3 Results & Data Results & Data ([facility]) Vital Signs (Past 12 Hours) Vital Signs Temp Pulse Pulse Resp BP BP Pulse Ox 05/12/20 21:05 82 153/76 H 05/12/20 15:10 36.8 C 79 18 144/75 H 95 Laboratory Results Laboratory Results - last 24 hr 05/12/20 05/12/20 05/12/20 06:17 08:20 12:07 Sodium 136 Potassium 4.3 Chloride 105 Carbon Dioxide 24 Anion Gap 7.0 BUN 48 H Creatinine 2.47 H D Est Cr Clr Drug Dosing 28.1 Est GFR ( Amer) 27.9 Est GFR (Non-Af Amer) 24.1 BUN/Creatinine Ratio 19.3 Glucose 131 H POC Glucose 135 H 185 H Calcium 9.1 Urine Color Urine Appearance Urine pH Ur Specific [place] Urine Protein Urine Glucose (UA) Urine Ketones Urine Blood Urine Nitrite Urine Bilirubin Urine Urobilinogen Ur Leukocyte Esterase Urine WBC (Auto) Urine RBC (Auto) U Hyaline Cast (Auto) U Epithel Cells (Auto) Urine Bacteria (Auto) Ur Random Creatinine Ur Random Sodium 05/12/20 05/12/20 05/12/20 17:19 20:34 Unknown Sodium Potassium Chloride Carbon Dioxide Anion Gap BUN Creatinine Est Cr Clr Drug Dosing Est GFR ( Amer) Est GFR (Non-Af Amer) BUN/Creatinine Ratio Glucose POC Glucose 119 H 169 H Calcium Urine Color Yellow Urine Appearance Clear Urine pH 5.0 Ur Specific [place] 1.020 Urine Protein 2+ H Urine Glucose (UA) Negative Urine Ketones Negative Urine Blood 1+ H Urine Nitrite Negative Urine Bilirubin Negative Urine Urobilinogen Negative Ur Leukocyte Esterase Negative Urine WBC (Auto) 1-5 Urine RBC (Auto) 5-10 H U Hyaline Cast (Auto) 1-5 U Epithel Cells (Auto) 10-20 H Urine Bacteria (Auto) Negative Ur Random Creatinine Ur Random Sodium 05/12/20 Unknown Sodium Potassium Chloride Carbon Dioxide Anion Gap BUN Creatinine Est Cr Clr Drug Dosing Est GFR ( Amer) Est GFR (Non-Af Amer) BUN/Creatinine Ratio Glucose POC Glucose Calcium Urine Color Urine Appearance Urine pH Ur Specific [place] Urine Protein Urine Glucose (UA) Urine Ketones Urine Blood Urine Nitrite Urine Bilirubin Urine Urobilinogen Ur Leukocyte Esterase Urine WBC (Auto) Urine RBC (Auto) U Hyaline Cast (Auto) U Epithel Cells (Auto) Urine Bacteria (Auto) Ur Random Creatinine 92.4 Ur Random Sodium 58 Fe Na = 1.1 PG Care Time/CCT Total # of Minutes Spent Total Time Spent with Patient: Total time spent is greater than 50% in coordination of care (as documented) at patient's floor/unit and/or counseling patient: Coding Level of Care Code 86963 Subseq Hosp Care Lvl 3 Diagnoses CAROLYNE (acute kidney injury) N17.9 Gangrene of toe of right foot I96 Cellulitis of right lower extremity L03.115 Diabetic foot infection E11.628; L08.9 Diabetes mellitus E11.9 Peripheral artery disease I73.9 Generalized anxiety disorder F41.1 Depression, major, recurrent F33.9 Benign essential hypertension I10 CKD (chronic kidney disease) stage 3, GFR 30-59 ml/min N18.3 Hypothyroidism E03.9 Gout M10.9 Dysphagia R13.10 Right foot drop M21.371 DVT prophylaxis Z29.9
[2020-05-13] MEDS: AZTREONAM 1,000 MG in DEXTROSE 5% 100 ML IV SCH ×3 (04:29→20:17)
[2020-05-13] MEDS: metroNIDAZOLE 500 MG/100 ML BAG IV SCH ×3 (05:46→21:24)
[2020-05-13] MEDS: LEVOTHYROXINE SODIUM 50 MCG TABLET PO SCH (05:46)
[2020-05-13 08:24] LABS: Basophils # (auto) 0.03 K/uL (0-0.2); Basophils % (auto) 0.2 %; Eosinophils # (auto) 0.12 K/uL (0-0.5); Eosinophils % (auto) 0.9 %; Hematocrit (blood only) 29.7 % (42-52); Hemoglobin 9.5 g/dL (14.0-18.0); Immature Granulocytes # (auto) 0.04 K/uL (0.00-0.02); Immature Granulocytes % (auto) 0.3 %; Lymphocytes # (auto) 1.37 K/uL (1.2-3.4); Lymphocytes % (auto) 10.7 %; Mean Corpuscular Hemoglobin 29.5 pg (25-34); Mean Corpuscular Volume 92.2 fL (80-100); Mean Platelet Volume 8.8 fL (7.4-10.4); Monocytes # (auto) 1.36 K/uL (0.11-0.59); Monocytes % (auto) 10.6 %; Neutrophils # (auto) 9.94 K/uL (1.4-6.5); Neutrophils % (auto) 77.3 %; Platelet Count 360 K/uL (130-400); RDW Coefficient of Variation 13.9 % (11.5-14.5); RDW Standard Deviation 46.5 fL (36.4-46.3); Red Blood Count 3.22 M/uL (4.7-6.1); White Blood Count 12.86 K/uL (4.8-10.8)
[2020-05-13] MEDS: allopurinoL 300 MG TAB PO SCH (08:28)
[2020-05-13] MEDS: ADVANCED PROBIOTIC 1250 MG CAPSULE PO SCH (08:29)
[2020-05-13] MEDS: amLODIPine BESYLATE 5 MG TAB PO SCH ×2 (08:29→20:20)
[2020-05-13] MEDS: carvediloL 6.25 MG TAB PO SCH ×2 (08:29→20:21)
[2020-05-13] MEDS: CHOLECALCIFEROL 1,000 UNITS 25 MCG TAB PO SCH (08:30)
[2020-05-13] MEDS: ASPIRIN 81 MG ECTAB PO SCH (08:30)
[2020-05-13] MEDS: INSULIN ASPART 100 UNITS/ML 3 ML PEN SC SCH ×4 (08:32→20:22)
[2020-05-13] MEDS: HEPARIN SOD 5,000 UNIT/0.5 ML VIAL SQ SCH ×2 (08:34→20:21)
[2020-05-13 09:01] LABS: BUN Creatinine Ratio 21.8 (10-20); Calcium 9.4 mg/dl (8.5-10.1); Creatinine Clr Calc Pharmacy 28.4 ml/min; Est GFR (African American) 28.2; Est GFR (Non-African American) 24.3; Potassium 4.4 mmol/L (3.5-5.1)
--- NOTE | 2020-05-13 10:59 | Pharmacy Report ---
Glycemic Control Progress Note - Date of Service May 13, 2020 - Scope Glycemic Pharmacist consulted for glycemic control to write orders per [facility] inpatient glycemic control protocol. - Objective Accuchecks BSG(last 24 hours):: 05/12/20 05/12/20 05/12/20 12:07 17:19 20:34 Glucose POC Glucose 185 H 119 H 169 H 05/13/20 05/13/20 08:04 08:14 Glucose 142 H POC Glucose 142 H HbA1c:: Hemoglobin A1c 7.8 % (4.5-5.6) H 05/08/20 05:44 - Recent Pertinent Medications The patient is currently receiving: * Basal insulin: Lantus -- units every -- hours * Correctional Insulin: Novolog Correction per scale ACHS Goal Range: Low 110 mg/dL - High 140 mg/dL Correction Factor: 30 mg/dL/unit * Prandial insulin: Per carb ratio of 1 unit per 10 grams CHO consumed - Outpatient Anti-Diabetic Meds Amaryl 1 mg daily - Assessment & Plan ASSESSMENT: * See progress note from 05/09/19 for more background info, in short: * Pt receiving SQ basal bolus insulin regimen for hyperglycemia secondary to baseline DM (outpatient regimen on hold). Patient currently on Azactam/Flagyl for ongoing diabetic foot infection. Plan for OR tomorrow. * Patient is currently receiving an average of 14 units of insulin per day * 0 units of basal insulin * 14 units of prandial/correctional insulin * BSGs ranging 135 - 185 mg/dl over the past 24hrs * Changes needed to insulin regimen: * AM Fasting BSG = 142 mg/dl. This is just above goal range for patient based on inpatient targets and co-morbidities. Patient has not demonstrated that he requires basal insulin at this point. Continue to hold. * Post-prandial BSGs were elevated after being in range. Tighten CR. * Total daily dose = <20 units.Tightened CR to increase insulin given. PLAN FOR INPATIENT GLYCEMIC CONTROL: * Continuing correction factor of 30 mg/dl/unit * TIGHTENING carb ratio to 1 unit per 8 grams CHO consumed * Continuing goal range of Low 110 mg/dL - High 140 mg/dL RECOMMENDATIONS FOR DISCHARGE: * Patient's HbA1C is above goal range (~7.5%) but is improved compared to December of last year. * Sulfonylureas are not recommended in renal dysfunction. However, the patient is limited due to kidney dysfunction with most agents contraindicated. * Could consider low dose Lantus. * If refuses insulin, would recommend switch to glipizde 2.5 mg daily as an alternative to glimepiride. Thank you.
[2020-05-13] MEDS: DULoxetine HCL 20 MG CAP PO SCH (20:20)
[2020-05-13] MEDS: PYRIDOXINE HCL 50 MG TAB PO SCH (20:21)
[2020-05-13] MEDS: CYANOCOBALAMIN 500 MCG TABLET (VITAMIN B-12) PO SCH (20:21)
[2020-05-13] MEDS: THIAMINE HCL 100 MG TAB PO SCH (20:22)
--- NOTE | 2020-05-13 20:42 | Hospitalist Progress Note ---
Date of Service May 13, 2020 Assessment & Plan (1) CAROLYNE (acute kidney injury): Cr 2.4 - yesterday & today. FeNa = 1.1 suggesting intrinsic cause - ATN, AIN, etc. Certainly could have developed AIN from pip/tazo use. No recent hypotension to cause ATN but could have had sepsis earlier in hospital stay leading to sepsis-associated ATN but doubt. STOPPED pip-tazo. Gave 500cc of fluid overnight. Cr 2.4 this am - has peaked. BMP in am. Antibiotics changed. ARB on hold. Avoiding other nephrotoxic agents. (2) Gangrene of toe of right foot: right great toe - to OR tomorrow with Dr Sanders for amputation. Due to CAROLYNE and concern for AIN stopped pip/tazo. Changed to aztreonam + flagyl. recent culture w/ pseudomonas - sens to aztreonam. has component of PAD but no plans for intervention per Dr Sanders at this time. NPO after MN for amputation. (3) Cellulitis of right lower extremity: dorsum of right foot - improving. in setting of gangrene R great toe. see above re: abx. (4) Diabetic foot infection: Ulcer of R Great Toe with subsequent development of gangrene and cellulitis involving the right foot. This is in setting of probable diabetic neuropathy and right foot drop. Continue IV abx - see above. Vascular surgery to perform right great toe amputation tomorrow on Sunday. Last 5+ A1cs all >7% -- desperately needs better DM control. Needs AFO device for right foot down the line. DM education. (5) Diabetes mellitus: Hold glimepiride Consulted certified adapted physical educator Novolog SSI and basal bolus Pharmacy consulted for assistance in glucose management (6) Peripheral artery disease: severe PAD noted on arterial duplex of RLE but ESMER only 0.9. palpable pulses of right foot however. high grade stenosis of right posterior tibial artery noted on duplex. per Dr Sanders deferring on arteriogram/intervention, however, at this time. cont asa. should be on statin. (7) Generalized anxiety disorder: cont cymbalta (8) Depression, major, recurrent: continue Duloxetine (9) Benign essential hypertension: Continue home Amlodipine but have increased to BID dosing Holding Losartan due to CAROLYNE Added lowdose coreg and titrated/increased to 6.25mgBID BPs are improving (10) CKD (chronic kidney disease) stage 3, GFR 30-59 ml/min: baseline Cr about 2 BMP am for stability now with mild CAROLYNE as above (11) Hypothyroidism: TSH 0.582 Continue home Levothyroxine (12) Gout: Cont allopurinol for gout prophylaxis (13) Dysphagia: frequent episodes at home speech consultation and recs appreciated easy to chew diet ordered by speech (14) Right foot drop: long-standing, 8-10 years per his recollection contributes to gait issues ultimately needs to have AFO no back issues so likely peripheral neuropathy (peroneal nerve injury, etc) (15) DVT prophylaxis: heparin 5000 BID updated pt's by phone this evening Admission and Anticipated Discharge Date Admission Date: May 07, 2020 Subjective patient without any new complaints. anxiously awaiting R great toe amputation tomorrow. worked w/ PT today - walked over 200 feet; cleared for home. denies any pain in right foot. spending most time in bed; not getting to chair often. eating 100% meals. Review of Systems Constitutional: no fever Respiratory: no cough, no dyspnea and no dyspnea on exertion Cardiovascular: no chest pain Gastrointestinal: no abdominal pain and no diarrhea/loose stools Physical Exam Constitutional: well developed and well nourished; no acute distress and no altered mental status ENMT: external ear and nose normal, oropharynx normal Respiratory: normal respiratory effort, lungs clear to auscultation Cardiovascular: Rate/Rhythm: regular rate and regular rhythm Heart Sounds: normal S1 and normal S2; no murmur Vessels: posterior tibial pulses present and dorsalis pedis pulses present; no JVD Extremities: + edema (Minimal - right foot) Gastrointestinal (Abdomen): normal bowel sounds, soft, nontender, no hepatosplenomegaly Skin: right great toe gangrene with necrotic, black skin and odor today. Cellulitis of right foot - mainly dorsum - unchanged Psychiatric: Orientation: alert and oriented x 3 Results & Data Results & Data ([facility]) Vital Signs (Past 12 Hours) Vital Signs Temp Pulse Resp BP Pulse Ox 05/13/20 15:31 37.2 C 74 16 130/71 94 Laboratory Results Laboratory Results - last 24 hr 05/13/20 05/13/20 05/13/20 08:04 08:14 08:14 WBC 12.86 H RBC 3.22 L Hgb 9.5 L Hct 29.7 L MCV 92.2 MCH 29.5 MCHC 32.0 RDW Std Deviation 46.5 H RDW Coeff of Reyes 13.9 Plt Count 360 MPV 8.8 Immature Gran % (Auto) 0.3 Neut % (Auto) 77.3 Lymph % (Auto) 10.7 [place] % (Auto) 10.6 Eos % (Auto) 0.9 Baso % (Auto) 0.2 Neut # (Auto) 9.94 H Lymph # (Auto) 1.37 [place] # (Auto) 1.36 H Eos # (Auto) 0.12 Baso # (Auto) 0.03 Immature Gran # (Auto) 0.04 H Sodium 136 Potassium 4.4 Chloride 106 Carbon Dioxide 22 Anion Gap 8.0 BUN 53 H Creatinine 2.45 H Est Cr Clr Drug Dosing 28.4 Est GFR ( Amer) 28.2 Est GFR (Non-Af Amer) 24.3 BUN/Creatinine Ratio 21.8 H Glucose 142 H POC Glucose 142 H Calcium 9.4 05/13/20 05/13/20 05/13/20 11:52 17:13 20:20 WBC RBC Hgb Hct MCV MCH MCHC RDW Std Deviation RDW Coeff of Reyes Plt Count MPV Immature Gran % (Auto) Neut % (Auto) Lymph % (Auto) [place] % (Auto) Eos % (Auto) Baso % (Auto) Neut # (Auto) Lymph # (Auto) [place] # (Auto) Eos # (Auto) Baso # (Auto) Immature Gran # (Auto) Sodium Potassium Chloride Carbon Dioxide Anion Gap BUN Creatinine Est Cr Clr Drug Dosing Est GFR ( Amer) Est GFR (Non-Af Amer) BUN/Creatinine Ratio Glucose POC Glucose 154 H 122 H 144 H Calcium PG Care Time/CCT Total # of Minutes Spent Total Time Spent with Patient: Total time spent is greater than 50% in coordination of care (as documented) at patient's floor/unit and/or counseling patient: Coding Level of Care Code 34782 Subseq Hosp Care Lvl 2 Diagnoses CAROLYNE (acute kidney injury) N17.9 Gangrene of toe of right foot I96 Cellulitis of right lower extremity L03.115 Diabetic foot infection E11.628; L08.9 Diabetes mellitus E11.9 Peripheral artery disease I73.9 Generalized anxiety disorder F41.1 Depression, major, recurrent F33.9 Benign essential hypertension I10 CKD (chronic kidney disease) stage 3, GFR 30-59 ml/min N18.3 Hypothyroidism E03.9 Gout M10.9 Dysphagia R13.10 Right foot drop M21.371 DVT prophylaxis Z29.9
[2020-05-14] MEDS: AZTREONAM 1,000 MG in DEXTROSE 5% 100 ML IV SCH (03:57)
[2020-05-14] MEDS ORDERED: Nursing to Pharmacy Communication SCH ×2 (04:45→12:15)
[2020-05-14] MEDS: metroNIDAZOLE 500 MG/100 ML BAG IV SCH ×3 (05:00→21:21)
[2020-05-14] MEDS: INSULIN ASPART 100 UNITS/ML 3 ML PEN SC SCH ×5 (05:46→21:20)
[2020-05-14] MEDS: LEVOTHYROXINE SODIUM 50 MCG TABLET PO SCH (06:08)
[2020-05-14 06:36] LABS: INR 1.2 (0.9-1.1); Prothrombin Time 12.7 Seconds (9.0-12.0)
[2020-05-14] MEDS ORDERED: fentaNYL citrate 100 MCG/2 ML VIAL ONE (07:00)
[2020-05-14 07:03] LABS: BUN Creatinine Ratio 26.9 (10-20); Calcium 9.4 mg/dl (8.5-10.1); Creatinine Clr Calc Pharmacy 32.5 ml/min; Est GFR (African American) 33.2; Est GFR (Non-African American) 28.6; Potassium 4.6 mmol/L (3.5-5.1)
[2020-05-14] MEDS ORDERED: LIDOCAINE HCL 1% 20 ML VIAL ONE (07:06)
[2020-05-14] MEDS ORDERED: BUPIVACAINE 0.5 % 5 MG/1 ML MPF 30ML VIAL ONE (07:07)
[2020-05-14] MEDS ORDERED: EpINEphrine HCL INJ 1 MG/ML 1ML SYRINGE ONE (07:08)
--- NOTE | 2020-05-14 07:08 | Anesthesiology Consultation ---
Date of Service May 14, 2020 Assessment & Plan (1) Encounter for pre-operative examination: Chart Review Chart Review: Acceptable Risk for Surgery History Surgery Operation Date: 05/14/20 07:30 Proposed Procedures p Right Great Toe Transmetatarsal Amputation - Candido Sanders MD Height/Weight Height: 5 ft 8 in Weight: 99.2 kg Allergies Allergy/AdvReac Type Severity Reaction Status Date / Time Sulfa (Sulfonamide Allergy Unknown UNSURE OF Verified 05/07/20 13:29 Antibiotics) REACTION, WAS TOLD BY MOTHER Medications Home Medications Medication Instructions Recorded Confirmed Last Taken glimepiride 1 mg tablet 1 mg PO QAM #90 tab 09/18/19 05/07/20 Unknown cholecalciferol (vitamin D3) 50 50 mcg PO DAILY 12/30/19 05/07/20 Unknown mcg (2,000 unit) capsule duloxetine 20 mg capsule,delayed 20 mg PO DAILY #90 cap 12/30/19 05/07/20 Unknown release vitamin B complex 1 tab PO DAILY 12/30/19 05/07/20 Unknown levothyroxine 50 mcg tablet 50 mcg PO DAILY #90 tab 12/31/19 05/07/20 Unknown amlodipine 2.5 mg tablet 2.5 mg PO PM #90 tab 01/07/20 05/07/20 Unknown losartan 100 mg tablet 100 mg PO DAILY #90 tab 01/22/20 05/07/20 Unknown multivitamin 1 tab PO DAILY 01/22/20 05/07/20 Unknown allopurinol 300 mg tablet 300 mg PO DAILY #90 tab 04/01/20 05/07/20 Unknown Active Medications Generic Name Dose Route Start Last Admin Trade Name Logan PRN Reason Stop Dose Admin Allopurinol 300 mg 05/08/20 09:00 05/13/20 08:28 Allopurinol 300 Mg Tab PO 06/07/20 08:59 300 mg DAILY KERA Administration Amlodipine Besylate 2.5 mg 05/11/20 09:00 05/13/20 20:20 Amlodipine Besylate 5 Mg Tab PO 06/10/20 08:59 2.5 mg BID KERA Administration Aspirin 81 mg 05/08/20 15:45 05/13/20 08:30 Aspirin 81 Mg Ectab PO 06/07/20 15:44 81 mg QAM KERA Administration Carvedilol 6.25 mg 05/12/20 21:00 05/13/20 20:21 Carvedilol 6.25 Mg Tab PO 06/11/20 20:59 6.25 mg BID KERA Administration Cyanocobalamin 1,000 mcg 05/12/20 21:00 05/13/20 20:21 Cyanocobalamin 500 Mcg Tablet (Vitamin B-12) PO 06/11/20 20:59 1,000 mcg HS KERA Administration Duloxetine HCl 20 mg 05/08/20 21:00 05/13/20 20:20 Duloxetine Hcl 20 Mg Cap PO 06/07/20 20:59 20 mg HS KERA Administration Heparin Sodium (Porcine) 5,000 units 05/12/20 09:00 05/13/20 20:21 Heparin Sod 5,000 Unit/0.5 Ml Vial SQ 06/11/20 08:59 5,000 units Q12 KERA Administration Metronidazole 500 mg in 100 mls @ 100 mls/hr 05/12/20 21:00 05/14/20 06:13 Flagyl IV 05/19/20 20:59 Infused Q8H KERA Infusion Aztreonam 1,000 mg/ Dextrose 110 mls @ 110 mls/hr 05/12/20 19:30 05/14/20 05:00 IV 05/19/20 19:29 Infused Q8H KERA Infusion Protocol Insulin Aspart 0 units 05/14/20 06:00 05/14/20 05:46 Insulin Aspart 100 Units/Ml 3 Ml Pen SC 06/13/20 05:59 Not Given Q6 KERA Lactobacillus Acidoph/Casei/Rhamnos 2 cap 05/12/20 11:00 05/13/20 08:29 Advanced Probiotic 1250 Mg Capsule PO 06/11/20 10:59 2 cap DAILY KERA Administration Levothyroxine Sodium 50 mcg 05/08/20 06:30 05/14/20 06:08 Levothyroxine Sodium 50 Mcg Tablet PO 06/07/20 06:29 50 mcg DAILYBB KERA Administration Pyridoxine HCl 50 mg 05/12/20 21:00 05/13/20 20:21 Pyridoxine Hcl 50 Mg Tab PO 06/11/20 20:59 50 mg HS KERA Administration Thiamine HCl 200 mg 05/12/20 21:00 05/13/20 20:22 Thiamine Hcl 100 Mg Tab PO 06/11/20 20:59 200 mg HS KERA Administration Vitamin D 2,000 units 05/08/20 09:00 05/13/20 08:30 Cholecalciferol 1,000 Units 25 Mcg Tab PO 06/07/20 08:59 2,000 units DAILY KERA Administration NPO Date Last Intake of Fluids: 05/13/20 Time Last Intake of Fluids: 23:00 Date Last Intake of Solids: 05/13/20 Time Last Intake of Solids: 23:00 Last Intake of Solids Comment: "karli and roger" Past Medical History Medical History (Updated 05/14/20 @ 07:07 by Kishore Lopez MD) CAROLYNE (acute kidney injury) Anxiety and depression Benign essential hypertension Cellulitis of right lower extremity CKD (chronic kidney disease) stage 3, GFR 30-59 ml/min Diabetes mellitus, type 2 Diabetic foot infection Diabetic peripheral neuropathy Gangrene of toe of right foot Gout Hearing deficit 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 Hypothyroidism Occlusion and stenosis of right carotid artery Peripheral artery disease Poor historian Past Family History Family History Mother Diabetes Father Esophageal cancer Past Surgical History Surgical History History of anesthesia reaction COMBATIVE WITH KHAI (REQUIRED RESTRAINTS) History of cataract surgery History of tooth extraction History of total hip arthroplasty LEFT Social History Smoking Status: Never smoker Do You Dip or Chew Tobacco: No Hx Alcohol Use: No Hx Substance Use: No substance use type: does not use Physical Exam Vital Signs Last Vital Signs Temp 36.9 C 05/14/20 06:49 Pulse 74 05/14/20 06:49 Resp 18 05/14/20 06:49 BP 176/88 H 05/14/20 06:49 Pulse Ox 98 05/14/20 06:49 Testing Laboratory Results 05/13/20 08:14 05/14/20 05:48 PT 12.7 Seconds (9.0-12.0) H 05/14/20 05:48 INR 1.2 (0.9-1.1) H 05/14/20 05:48 Hemoglobin A1c 7.8 % (4.5-5.6) H 05/08/20 05:44 Urine Color Yellow 05/12/20 Unknown Urine Appearance Clear (Clear) 05/12/20 Unknown Urine pH 5.0 (4.5-7.5) 05/12/20 Unknown Ur Specific [place] 1.020 (1.000-1.030) 05/12/20 Unknown Urine Protein 2+ (Negative) H 05/12/20 Unknown Urine Glucose (UA) Negative (Negative) 05/12/20 Unknown Urine Ketones Negative (Negative) 05/12/20 Unknown Urine Nitrite Negative (Negative) 05/12/20 Unknown Ur Leukocyte Esterase Negative (Negative) 05/12/20 Unknown Urine WBC (Auto) 1-5 /hpf (0-5) 05/12/20 Unknown Urine RBC (Auto) 5-10 /hpf (0-4) H 05/12/20 Unknown U Hyaline Cast (Auto) 1-5 /lpf (0-5) 05/12/20 Unknown U Epithel Cells (Auto) 10-20 /lpf (0-5) H 05/12/20 Unknown Urine Bacteria (Auto) Negative (Negative) 05/12/20 Unknown 05/07/20 15:55 Aerobic Blood Culture - Final Blood No growth in Aerobic bottle after 5 days. Anaerobic Blood Culture - Final No growth in Anaerobic bottle after 5 days. 05/07/20 15:55 Aerobic Blood Culture - Final Blood No growth in Aerobic bottle after 5 days. Anaerobic Blood Culture - Final No growth in Anaerobic bottle after 5 days. 05/07/20 18:45 Gram Stain - Final Foot,Right Wound Culture - Final Pseudomonas aeruginosa Pseudomonas aeruginosa#2 05/14/20 05/13/20 05:44 20:20 POC Glucose 135 H 144 H
[2020-05-14] MEDS ORDERED: MIDAZOLAM HCL 1 MG/ML 2ML VIAL ONE (07:16)
[2020-05-14] MEDS ORDERED: LIDOCAINE HCL 2% (LOCAL) INJ 50 ML VIAL ONE (07:17)
[2020-05-14] MEDS ORDERED: BUPIVACAINE 0.5 % 5 MG/1 ML PF 10ML VIAL ONE (07:17)
--- NOTE | 2020-05-14 07:23 | History & Physical Bridge Note ---
Date of Service May 14, 2020 History & Physical Bridge Note Patient for a right great toe amputation today. I have discussed the risks options and benefits of the procedure with the patient. The patient understands the risks options and benefits and agrees to the procedure. I have examined the patient, reviewed the History & Physical and in the interval since the performance of the History & Physical I have noted the following changes of clinical significance: no changes noted
[2020-05-14] MEDS ORDERED: PROPOFOL IV EMULSION 10 MG/ML 20 ML VIAL IV ONE (08:00)
[2020-05-14] MEDS ORDERED: LIDOCAINE HCL 2% 2 ML VIAL/AMP(20MG/ML) INFIL ONE (08:00)
--- NOTE | 2020-05-14 08:11 | Operative Report ---
Post Operative Report Pre & Post Diagnosis Operation Date: 05/14/20 07:30 Pre-Op Diagnosis: DIABETIC FOOT ULCER WITH CELLULITIS Post-Op Diagnosis: DIABETIC FOOT ULCER WITH CELLULITIS I identified the patient and participated in the time-out.: Yes Procedure Operation Date: 05/14/20 07:30 Actual Procedures p Right Great Toe Transmetatarsal Amputation(Right) - Candido Sanders MD Surgeon Candido Sanders MD Utility Appraiser LAURA Garcia Estimated Blood Loss 5 Findings Consistent with Post-Op Diagnosis Specimens Right great toe Anesthesia Type MAC Regional Complications none Disposition Accompanied Patient To Recovery: No Disposition: Recovery Room Indications This is a 80-year-old male who developed dry gangrene right great toe. It demarcated to the base of the toe. Amputation was recommended. I have discussed the risks options and benefits of the procedure with the patient. The patient understands the risks options and benefits and agrees to the procedure. Description of Procedure The patient was taken to the operating room and placed supine position. Ankle block was performed by anesthesia. The right foot was then prepped and draped in a sterile manner. Timeout was performed patient was identified. An incision was made around the base of the toe just beyond the area of demarcation. This was done in a circular fashion at the base. Incision was then carried up over the metatarsal head medially. This was done in a tennis racquet fashion. The metatarsal head was then isolated. Proximal distal phalanx were removed. Good bleeding was seen from the surrounding tissue. The metatarsal was then transected just beyond the head. Adequate hemostasis was then obtained. After active hemostasis was noted the wound was closed using interrupted 3-0 nylon sutures to approximate the edges and close the space. Sterile dressings were applied to the wounds.The patient left the operation room in satisfactory condition and tolerated the procedure well. All needle and sponge counts were correct at the end of the procedure. Lis Adams Pac assisted due to lack of resident availability and was necessary for positioning, draping, retraction, wound closure deep layers, subcutaneous tissue, and skin closure and was necessary for assisting with the case. I attest to the content of the Intraoperative Record and any orders documented therein. Any exceptions are noted below.
--- NOTE | 2020-05-14 09:05 | Anesthesiology Progress Note ---
Date of Service May 14, 2020 Anesthesia Post Procedure Vital Signs Vital Signs: Temp Pulse Pulse Resp BP BP Pulse Ox 05/14/20 08:40 36.5 C 69 17 137/68 95 05/14/20 08:30 68 17 131/67 95 05/14/20 08:22 36.1 C L 69 16 142/72 H 96 05/14/20 06:49 36.9 C 74 18 176/88 H 98 05/14/20 06:30 36.4 C L 74 18 158/94 H 97 05/13/20 23:31 37.0 C 83 18 168/84 H 95 05/13/20 15:31 37.2 C 74 16 130/71 94 Pain Intensity Right Toe: Pain Intensity: 0 Transfer of Care Handoff Completed per policy Notes Mental Status: alert / awake / arousable Patient Amnestic to Procedure: Yes Nausea / Vomiting: adequately controlled Pain: adequately controlled Airway Patency, RR, SpO2: stable & adequate BP & HR: stable & adequate Hydration State: stable & adequate Anesthetic Complications: no major complications apparent
[2020-05-14] MEDS ORDERED: ATROPINE SULFATE 0.1 MG/ML 10ML SYR IV PRN (09:19)
[2020-05-14] MEDS ORDERED: ePHEDrine sulfate 50 MG/ML AMP IV PRN (09:19)
[2020-05-14] MEDS: ASPIRIN 81 MG ECTAB PO SCH (10:01)
[2020-05-14] MEDS: carvediloL 6.25 MG TAB PO SCH ×2 (10:01→21:25)
[2020-05-14] MEDS: HEPARIN SOD 5,000 UNIT/0.5 ML VIAL SQ SCH ×2 (10:02→21:21)
[2020-05-14] MEDS: amLODIPine BESYLATE 5 MG TAB PO SCH ×2 (10:02→21:23)
[2020-05-14] MEDS: ADVANCED PROBIOTIC 1250 MG CAPSULE PO SCH (10:03)
[2020-05-14] MEDS: CHOLECALCIFEROL 1,000 UNITS 25 MCG TAB PO SCH (10:03)
[2020-05-14] MEDS: allopurinoL 300 MG TAB PO SCH (10:04)
[2020-05-14] MEDS ORDERED: MoRPHine SULFATE 4 MG/ML 1 ML CARP\\VIAL IV PRN (10:25)
[2020-05-14] MEDS: AZTREONAM 2,000 MG in DEXTROSE 5% 100 ML IV SCH ×2 (10:34→19:13)
[2020-05-14] MEDS: D5W AND 1/2NSS 1,000 ML IV SCH (10:36)
--- NOTE | 2020-05-14 11:17 | Pharmacy Report ---
Glycemic Control Progress Note - Date of Service May 14, 2020 - Scope Glycemic Pharmacist consulted for glycemic control to write orders per [facility] inpatient glycemic control protocol. - Objective Accuchecks BSG(last 24 hours):: 05/13/20 05/13/20 05/13/20 11:52 17:13 20:20 Glucose POC Glucose 154 H 122 H 144 H 05/14/20 05/14/20 05/14/20 05:44 05:48 08:23 Glucose 134 H POC Glucose 135 H 142 H HbA1c:: Hemoglobin A1c 7.8 % (4.5-5.6) H 05/08/20 05:44 - Recent Pertinent Medications The patient is currently receiving: * Basal insulin: Lantus -- units every -- hours * Correctional Insulin: Novolog Correction per scale ACHS Goal Range: Low 110 mg/dL - High 140 mg/dL Correction Factor: 30 mg/dL/unit * Prandial insulin: Per carb ratio of 1 unit per 8 grams CHO consumed - Outpatient Anti-Diabetic Meds Amaryl 1 mg daily - Assessment & Plan ASSESSMENT: * See progress note from 05/09/20 for more background info, in short: * Pt receiving SQ basal bolus insulin regimen for hyperglycemia secondary to baseline DM (outpatient regimen on hold),stress/infection (currently on Azactam/Flagyl), and POD 0 for toe amputation. Currently, patient is NPO receiving dextrose @ 80 mL/hr. * Patient is currently receiving an average of 22 units of insulin per day * 0 units of basal insulin * 22 units of prandial/correctional insulin * BSGs ranging 122 - 154 mg/dl over the past 24hrs * Changes needed to insulin regimen: * AM Fasting BSG = 135 mg/dl. This is in goal range for patient based on inpatient targets and co-morbidities. Therefore Basal insulin will continue to be held. * Post-prandial BSGs were well controlled yesterday. Do not expect much blood sugar elevation from D5 as < 5 grams infused per hour and that is < 1 unit of insulin for patient. * Total daily dose = 15-25 units. Coverage with just Novolog is producing adequate BSG control. PLAN FOR INPATIENT GLYCEMIC CONTROL: * Continuing correction factor of 30 mg/dl/unit * Continuing carb ratio of 1 unit per 8 grams CHO consumed * Continuing goal range to Low 110 mg/dL - High 140 mg/dL RECOMMENDATIONS FOR DISCHARGE: * Patient's HbA1C is above goal range (~7.5%) but is improved compared to December of last year. * Sulfonylureas are not recommended in renal dysfunction. However, the patient is limited due to kidney dysfunction with most agents contraindicated. * Start with dietary changes as listed in CDE note. * Could consider low dose Lantus. * If refuses insulin, would recommend switch to glipizde 2.5 mg daily as an alternative to glimepiride. Thank you.
--- NOTE | 2020-05-14 14:38 | Pharmacy Report ---
Pharmacy Glycemic Sign Off Nt - Date of Service May 14, 2020 - Assessment & Plan ASSESSMENT: * Pharmacy was consulted by Dr De Luna on 05/09/20 for glycemic control and to write orders per [facility] inpatient glycemic control protocol. * Major changes made by pharmacy to antidiabetic regimen include: * initiation of Novolog * Patient has been receiving/requiring 22 units of insulin per day for adequate glycemic control * BSGs ranging 122- 154 mg/dl * Regimen has only required minor adjustments over the past 48hrs to achieve this level of control * Do not anticipate further changes in patient status that would quickly deteriorate glycemic control (i.e. patient to be NPO for upcoming procedure, steroids tapering, starting tube feedings, etc). * Please see recommendations for outpatient antidiabetic regimen below. PLAN FOR INPATIENT GLYCEMIC CONTROL: No changes needed to current regimen. * Continue no basal * Continue NovoLog per scale ACHS/Q6hrs while NPO * Goal range = 110- 140 mg/dl * CF = 30 mg/dl/unit * CR = 1 unit for ever 8 g CHO consumed * Pharmacy is signing off of glycemic consult and will no longer be making adjustments to inpatient regimen. Please feel free to re-consult if needed. Thank you. DISCHARGE RECOMMENDATIONS: * Patient's HbA1C is above goal range (~7.5%) but is improved compared to December of last year. * Sulfonylureas are not recommended in renal dysfunction. However, the patient is limited due to kidney dysfunction with most agents contraindicated. * Start with dietary changes as listed in CDE note. * Could consider low dose Lantus. * If refuses insulin, would recommend switch to glipizde 2.5 mg daily as an alternative to glimepiride.
[2020-05-14] MEDS: HYDROCODONE/ACETAMOPHEN 5/325MG TAB PO PRN ×2 (15:44→21:34)
[2020-05-14] MEDS ORDERED: HYDROCODONE/ACETAMOPHEN 5/325MG TAB PO STA (17:25)
--- NOTE | 2020-05-14 19:44 | Hospitalist Progress Note ---
Date of Service May 14, 2020 Assessment & Plan (1) CAROLYNE (acute kidney injury): Peak Cr 2.4. Now 2.1. FeNa = 1.1 suggesting intrinsic cause - ATN, AIN, etc. Certainly could have developed AIN from pip/tazo use. No recent hypotension to cause ATN but could have had sepsis earlier in hospital stay leading to sepsis-associated ATN but doubt. STOPPED pip-tazo. Antibiotics changed. ARB on hold. Avoiding other nephrotoxic agents. BMP am. (2) Gangrene of toe of right foot: right great toe - s/p amputation by Dr Sanders today. Due to CAROLYNE and concern for AIN stopped pip/tazo. Changed to aztreonam + flagyl. recent culture w/ pseudomonas - sens to aztreonam. has component of PAD but no plans for intervention per Dr Sanders at this time. WBAT to RLE with surgical post-op shoe/boot. has right foot drop - caution with use. (3) Cellulitis of right lower extremity: dorsum of right foot - improving. in setting of gangrene R great toe. see above re: abx. (4) Diabetic foot infection: Ulcer of R Great Toe with subsequent development of gangrene and cellulitis involving the right foot. This is in setting of probable diabetic neuropathy and right foot drop. Continue IV abx - see above. Vascular surgery to perform right great toe amputation tomorrow on Sunday. Last 5+ A1cs all >7% -- desperately needs better DM control. Needs AFO device for right foot down the line. DM education. (5) Diabetes mellitus: Hold glimepiride Consulted community educator Novolog SSI and basal bolus Pharmacy consulted for assistance in glucose management (6) Peripheral artery disease: severe PAD noted on arterial duplex of RLE but ESMER only 0.9. palpable pulses of right foot however. high grade stenosis of right posterior tibial artery noted on duplex. per Dr Sanders deferring on arteriogram/intervention, however, at this time. cont asa. should be on statin. will prescribe at d/c. (7) Generalized anxiety disorder: cont cymbalta (8) Depression, major, recurrent: continue Duloxetine (9) Benign essential hypertension: Continue home Amlodipine but have increased to BID dosing Holding Losartan due to CAROLYNE Added lowdose coreg and titrated/increased to 6.25mgBID BPs are improving/acceptable (10) CKD (chronic kidney disease) stage 3, GFR 30-59 ml/min: baseline Cr about 2 BMP am for stability now with mild CAROLYNE as above (2.1 today) (11) Hypothyroidism: TSH 0.582 Continue home Levothyroxine (12) Gout: Cont allopurinol for gout prophylaxis (13) Dysphagia: frequent episodes at home speech consultation and recs appreciated easy to chew diet ordered by speech (14) Right foot drop: long-standing, 8-10 years per his recollection contributes to gait issues ultimately needs to have AFO no back issues so likely peripheral neuropathy (peroneal nerve injury, etc) (15) DVT prophylaxis: heparin 5000 BID updated pt's by phone this evening home tomorrow?? Admission and Anticipated Discharge Date Admission Date: May 07, 2020 Subjective saw patient post-op from right great toe amputation c/o right foot burning pain but otherwise no cp or dyspnea tolerated diet post-op had normal bowel movement this am prior to his operation WBAT to RLE per Dr Sanders in surgical shoe/boot no new complaints otherwise Review of Systems Constitutional: no fever and no chills Respiratory: no cough and no dyspnea Cardiovascular: no chest pain Gastrointestinal: no diarrhea/loose stools Physical Exam 2 Constitutional: well developed and well nourished; no acute distress and no altered mental status ENMT: external ear and nose normal, oropharynx normal Respiratory: normal respiratory effort, lungs clear to auscultation Cardiovascular: Rate/Rhythm: regular rate and regular rhythm Heart Sounds: normal S1 and normal S2; no murmur Vessels: posterior tibial pulses present and dorsalis pedis pulses present; no JVD Gastrointestinal (Abdomen): normal bowel sounds, soft, nontender, no hepatosplenomegaly Skin: right foot wrapped in large dressing; toes 2-5 exposed, cap refill < 2 sec; right great toe absent Psychiatric: Orientation: alert and oriented x 3 Results & Data Results & Data ([facility]) Vital Signs (Past 12 Hours) Vital Signs Temp Pulse Resp BP Pulse Ox 05/14/20 19:15 36.6 C 74 18 155/52 H 96 05/14/20 11:30 36.9 C 67 16 126/66 95 05/14/20 10:30 36.7 C 71 15 122/69 96 05/14/20 09:30 36.7 C 67 16 162/81 H 96 05/14/20 09:00 36.8 C 68 15 157/73 H 97 05/14/20 08:40 36.5 C 69 17 137/68 95 05/14/20 08:30 68 17 131/67 95 05/14/20 08:22 36.1 C L 69 16 142/72 H 96 Laboratory Results Laboratory Results - last 24 hr 05/13/20 05/14/20 05/14/20 20:20 05:44 05:48 PT 12.7 H INR 1.2 H Sodium Potassium Chloride Carbon Dioxide Anion Gap BUN Creatinine Est Cr Clr Drug Dosing Est GFR ( Amer) Est GFR (Non-Af Amer) BUN/Creatinine Ratio Glucose POC Glucose 144 H 135 H Calcium 05/14/20 05/14/20 05/14/20 05:48 08:23 17:55 PT INR Sodium 136 Potassium 4.6 Chloride 105 Carbon Dioxide 22 Anion Gap 9.0 BUN 58 H Creatinine 2.14 H D Est Cr Clr Drug Dosing 32.5 Est GFR ( Amer) 33.2 Est GFR (Non-Af Amer) 28.6 BUN/Creatinine Ratio 26.9 H Glucose 134 H POC Glucose 142 H 189 H Calcium 9.4 PG Care Time/CCT Total # of Minutes Spent Total Time Spent with Patient: Total time spent is greater than 50% in coordination of care (as documented) at patient's floor/unit and/or counseling patient: Coding Level of Care Code 05870 Subseq Hosp Care Lvl 2 Diagnoses CAROLYNE (acute kidney injury) N17.9 Gangrene of toe of right foot I96 Cellulitis of right lower extremity L03.115 Diabetic foot infection E11.628; L08.9 Diabetes mellitus E11.9 Peripheral artery disease I73.9 Generalized anxiety disorder F41.1 Depression, major, recurrent F33.9 Benign essential hypertension I10 CKD (chronic kidney disease) stage 3, GFR 30-59 ml/min N18.3 Hypothyroidism E03.9 Gout M10.9 Dysphagia R13.10 Right foot drop M21.371 DVT prophylaxis Z29.9
[2020-05-14] MEDS: PYRIDOXINE HCL 50 MG TAB PO SCH (21:24)
[2020-05-14] MEDS: THIAMINE HCL 100 MG TAB PO SCH (21:24)
[2020-05-14] MEDS: CYANOCOBALAMIN 500 MCG TABLET (VITAMIN B-12) PO SCH (21:25)
[2020-05-14] MEDS: DULoxetine HCL 20 MG CAP PO SCH (21:25)
[2020-05-15] MEDS: HYDROCODONE/ACETAMOPHEN 5/325MG TAB PO PRN ×3 (01:22→16:02)
[2020-05-15] MEDS: AZTREONAM 2,000 MG in DEXTROSE 5% 100 ML IV SCH ×2 (01:33→09:53)
[2020-05-15] MEDS: D5W AND 1/2NSS 1,000 ML IV SCH (01:35)
[2020-05-15] MEDS: metroNIDAZOLE 500 MG/100 ML BAG IV SCH (05:13)
[2020-05-15] MEDS: LEVOTHYROXINE SODIUM 50 MCG TABLET PO SCH (06:18)
[2020-05-15 08:29] LABS: Hematocrit (blood only) 28.4 % (42-52); Hemoglobin 9.1 g/dL (14.0-18.0); Mean Corpuscular Hemoglobin 29.3 pg (25-34); Mean Corpuscular Volume 91.3 fL (80-100); Mean Platelet Volume 9.4 fL (7.4-10.4); Platelet Count 395 K/uL (130-400); RDW Coefficient of Variation 14.3 % (11.5-14.5); Red Blood Count 3.11 M/uL (4.7-6.1); White Blood Count 11.55 K/uL (4.8-10.8)
[2020-05-15 08:54] LABS: BUN Creatinine Ratio 29.1 (10-20); Calcium 9.1 mg/dl (8.5-10.1); Creatinine Clr Calc Pharmacy 31.9 ml/min; Est GFR (African American) 32.4; Potassium 4.7 mmol/L (3.5-5.1)
[2020-05-15] MEDS: HEPARIN SOD 5,000 UNIT/0.5 ML VIAL SQ SCH (09:42)
[2020-05-15] MEDS: ADVANCED PROBIOTIC 1250 MG CAPSULE PO SCH (09:42)
[2020-05-15] MEDS: ASPIRIN 81 MG ECTAB PO SCH (09:42)
[2020-05-15] MEDS: allopurinoL 300 MG TAB PO SCH (09:42)
[2020-05-15] MEDS: CHOLECALCIFEROL 1,000 UNITS 25 MCG TAB PO SCH (09:43)
[2020-05-15] MEDS: carvediloL 6.25 MG TAB PO SCH (09:43)
[2020-05-15] MEDS: amLODIPine BESYLATE 5 MG TAB PO SCH (09:43)
[2020-05-15] MEDS: INSULIN ASPART 100 UNITS/ML 3 ML PEN SC SCH ×2 (09:44→13:25)
[2020-05-15] MEDS ORDERED: CIPROFLOXACIN 250 MG TAB PO SCH (12:30)
--- NOTE | 2020-05-15 15:28 | Discharge Summary ---
Date of Service date of admission - May 07, 2020 date of discharge - May 15, 2020 Admission HPI Per Admitting Provider Patient is a 79 year old male with PMHx SETH, Depression, BPH, CKD III, DM2, Diabetic Neuropathy, Hypothyroidism, and Gout that presented initially with concerns of a foot infection on his great R toe. After being evaluated in the outpatient setting by his PCP he was instructed to present to the ED for IV antibiotics and wound care. Patient notes that he started having issues with his toe roughly 2 weeks ago and at that time had believed it to be due to his blood pressure medication Amlodipine. He does admit that he does not check his feet often so is unsure how the progression of ulcer has been. He states that last night he had soaked his foot in hydrogen peroxide in hopes to treat the infection, but felt it only worsened the redness around his foot. He saw his PCP earlier today which recommended the patient come to the ED for IV antibiotics and wound care. Patient notes that he does not feel pain in the foot, and in fact has very minimal feeling in his feet at all. Currently denies any fever, chills, SOB, chest pain, abdominal pain, dysuria, constipation, diarrhea. Medical Hx: SETH, Depression, DM2, BPH, Heart Block, CKD III, Gout, Hypothyro idism Surgical Hx: L hip replacement, L Cataract surgery Family Hx: Brother DM2 Social Hx: Does not use tobacco, alcohol, or illicit drugs Principal Diagnosis Right great toe gangrene s/p amputation; Right foot cellulitis. Discharge Exam Constitutional well developed and well nourished; no acute distress and no altered mental status ENMT external ear and nose normal, oropharynx normal Respiratory normal respiratory effort, lungs clear to auscultation Cardiovascular Rate/Rhythm: regular rate and regular rhythm Heart Sounds: normal S1 and normal S2; no murmur Vessels: posterior tibial pulses present and dorsalis pedis pulses present; no JVD Extremities: + edema (Minimal - right foot) Gastrointestinal (Abdomen) normal bowel sounds, soft, nontender, no hepatosplenomegaly Skin right foot wrapped in dressings; toes 2-5 exposed; cap refill about 2 seconds; warm Psychiatric Orientation: alert and oriented x 3 Discharge Data Allergies Allergy/AdvReac Type Severity Reaction Status Date / Time Sulfa (Sulfonamide Allergy Unknown UNSURE OF Verified 05/07/20 13:29 Antibiotics) REACTION, WAS TOLD BY MOTHER Consultations Vascular Surgery - Candido Sanders MD PT, OT speech therapy diabetes education wound care Procedures Performed Operation Date: 05/14/20 07:30 Actual Procedures Right Great Toe Transmetatarsal Amputation - Candido Sanders MD Ordered Studies 05/07/20 18:30 US arterial duplex LE RT Stat IMPRESSION: 1. 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 No flow visualized within the peroneal artery, possibly secondary to occlusion. 3. No evidence of hemodynamically significant common femoral superficial femoral or popliteal artery stenosis 05/10/20 15:30 US ankle/brachial index comp Routine IMPRESSION: 1. Normal left ankle-brachial index of 1.1 2. Mildly diminished right ankle brachial index of 0.8 Hospital Course (1) Gangrene of toe of right foot: Treated with IV broad-spectrum antibiotics during the stay. Ultimately underwent right great toe amputation by Dr Candido Sanders on 05/14/2020 without complications. Post-op did well from a functional/ambulatory standpoint. Cleared by PT to return home. Patient MUST wear a walking boot on the right foot/leg with any ambulation. Dr Sanders stated he could weight-bear as tolerated. Wound culture from the right-great toe grew pseudomonas. See discussion below re: antibiotics. Patient with component of PAD of the RLE but no plans for intervention at this time. ESMER was adequate. Finally, patient has a right foot drop (chronic) and this may impact the patient's healing and ambulation. Would have low threshold for orthotics/PT referral with any gait issues in the setting of his amputation. Patient has follow-up with Dr Sanders at [facility] on 05/17/20. Patient will take 3 weeks of cipro 250mg BID by mouth post-discharge. This was on recommendation from Soni MONROY (telephone call to ID on day of discharge). Advise repeat EKG at time of hospital follow-up to ensure QTc is stable. (2) Cellulitis of right lower extremity: Dorsum of right foot in conjunction with gangrene of right great toe. Improved with IV antibiotics (initially IV zosyn; changed to aztreonam; then at discharge PO cipro). Recommend an EKG to check QTc at time of hospital follow-up given cipro and cymbalta use. (3) Diabetic foot infection: Ulcer of R Great Toe with subsequent development of gangrene and cellulitis involving the right foot. This is in setting of probable diabetic neuropathy and right foot drop. s/p IV antibiotics while here. s/p amputation of right great toe by Dr Sanders. Last 5+ A1cs all >7% -- desperately needs better DM control. Needs AFO device for right foot down the line. DM education performed while hospitalized. (4) CAROLYNE (acute kidney injury): Peak Cr 2.4. Discharge Cr 2.1. FeNa = 1.1 suggesting intrinsic cause - ATN, AIN, etc. Certainly could have developed AIN from pip/tazo use. No recent hypotension to cause ATN but could have had sepsis earlier in hospital stay leading to sepsis-associated ATN but doubt. STOPPED pip-tazo and changed to aztreonam while hospitalized. ARB was placed on hold. (5) Diabetes mellitus: Required basal-bolus insulins while here. Pharmacy provided glycemic recommendations. At discharge his glimepiride was resumed. cathode builder provided glycemic education during the visit. (6) Peripheral artery disease: PAD noted on arterial duplex of RLE but ESMER only 0.9. Palpable pulses of right foot were present. Duplex and ESMER were reviewed by Dr Sanders. Arteriogram/intervention were deferred at this time. Continue aspirin 81mg daily. Really should be on statin. Defer statin initiation to PCP. (7) Generalized anxiety disorder: cont cymbalta (8) Depression, major, recurrent: continue cymbalta (9) Benign essential hypertension: Continue home Amlodipine but have increased to 2.5mg BID. Holding Losartan at discharge due to recent CAROLYNE. Added low-dose coreg and titrated/increased to 6.25mg BID by time of discharge. BPs improved by discharge. (10) CKD (chronic kidney disease) stage 3, GFR 30-59 ml/min: baseline Cr about 2 had mild CAROLYNE (peak 2.4) during the hospitalization Cr 2.1 at discharge (11) Hypothyroidism: TSH 0.582 Continue home Levothyroxine (12) Gout: Cont allopurinol for gout prophylaxis (13) Dysphagia: frequent episodes at home per patient speech consultation completed easy to chew diet recommended by speech (14) Right foot drop: long-standing, 8-10 years per his recollection contributes to gait issues ultimately needs to have AFO suspexct likely peripheral neuropathy (peroneal nerve injury, etc) Total Time Total Time Spent Total Time Spent (In Minutes): 45 Total Time Includes: Examination of the Patient, Discharge Planning, Medication Reconciliation and Communication With Other Providers Discharge Plan Discharge Items Patient Disposition: Home - Home Health Services Reason For Visit: DIABETIC FOOT ULCER WITH CELLULITIS Discharge Diagnosis: 1. gangrene of right big toe - amputation by Dr Lux Sanders 2. cellulitis (skin infection) of right foot - improving 3. chronic kidney disease 4. type 2 diabetes Activity: As commented below Activity Comment: Ok to weight bear as tolerated on right leg/foot WITH BOOT IN PLACE Bathing Comment: sponge baths only; do NOT get right foot wet Exercise/Sports: Wait until after follow-up appointment Driving/Machine Use: No driving until cleared by Dr Sanders, your surgeon Weightbearing: Right weightbearing Weightbearing Comment: WITH BOOT ON AT ALL TIMES WHEN YOU WALK Non-emergency contact: Primary Care Provider and Surgeon Call non-emergency contact if: you have any medication questions, your symptoms worsen, your pain is not controlled, you have a fever, your wound has increased redness, your wound has increased drainage and your wound pain has increased Follow-up/Referrals: Ilsa Smith MD [Primary Care Provider] - (see Dr Smith within [address] Smith for an EKG at the visit. ) Candido Sanders MD [Physician] - 05/17/20 1:30 pm (Call [phone] to schedule a post operative appointment for this coming week (week of the )) Diet: Carb Consistent or DM2 Diet Texture: Easy to Chew Addtl Attending Provider Instructions: Mr Cardenas, You were treated for gangrene of your right great toe and skin infection of your foot with IV antibiotics. You ultimately needed amputation of the right great toe by Dr Sanders. This was performed on 05/14/2020. Dr Sanders as advised the following - 1. OK to weight bear as tolerated on the right foot/leg LONG YOU HAVE THE WALKING BOOT ON. Do not place weight on the foot if you don't have the boot on. OK to take the boot off when relaxing in bed or on the couch, sleeping, or sitting in a chair. When you go to walk put the boot back on. 2. Leave all dressings in place. Do not remove any dressings. 3. Do not get the dressings wet. Sponge baths only until you see Dr Sanders or his physician retail event and sales assistant on 05/17/20. 4. Do not drive a vehicle until cleared by Dr Sanders. Recommendations from Dr Rangel - 1. cipro - this is your antibiotic - 1 twice a day for 21 days, first dose TONIGHT 05/15/20. This antibiotic can cause diarrhea. 2. probiotics every day for 21 days. This may help prevent diarrhea. 3. hydrocodone-acetaminophen pain killer - 1-2 tabs every 6 hours as needed for right foot pain. DO NOT TAKE [id number] tylenol if you use the pain killer. Know that the pain killer has tylenol in it. 4. DO NOT DRIVE a CAR or DRINK ALCOHOL while using the hydrocodone. 5. the hydrocodone can cause you to feel sleepy. It can also cause constipation. 6. for constipation - take [id number] miralax 1-2 servings daily as needed. 7. when you see Dr Smith in the office next week please have her check an EKG of your heart. The cipro and your cymbalta can occasionally interact with one another. 8. take a baby aspirin EVERY DAY with food. 9. talk to Dr Smith about taking a cholesterol medication. 10. blood pressure pills - do the following - * STOP your losartan * INCREASE your amlodipine to 2.5mg twice daily - script sent to [facility] * START carvedilol 6.25mg twice daily - script sent to [facility] Follow-up - see separate section Return to [facility] if - * you have fevers over 100 degrees * you have worsening pain in your right foot despite taking the pain meds * you have drainage from the right foot, redness of the remaining toes, unusual or foul odor from the foot, etc * you have shortness of breath * you have severe diarrhea * any other concerns It was my pleasure to care for you! -Dr Rangel Pending Studies at Discharge: No Stand-Alone Forms: My [facility] [employer], Smoking Cessation Medications and DC Order Prescriptions: New carvedilol 6.25 mg Tablet 6.25 mg PO BID Qty: 60 RF: 1 hydrocodone-acetaminophen [[place]] 5-325 mg Tablet 1 - 2 tab PO Q6H PRN (Reason: right foot pain) Qty: 30 RF: 0 ciprofloxacin HCl 250 mg Tablet 250 mg PO Q12 21 Days Qty: 42 RF: 0 aspirin 81 mg Tablet,Delayed Release (Dr/Ec) 81 mg PO QAM Qty: 90 RF: 3 Advanced Probiotic 625 mg (10 billion cell) Capsule 2 cap PO DAILY 21 Days Qty: 42 RF: 0 Continued glimepiride 1 mg tablet 1 mg PO QAM Qty: 90 RF: 3 multivitamin Tablet 1 tab PO DAILY RF: 0 vitamin B complex Tablet 1 tab PO DAILY RF: 0 cholecalciferol (vitamin D3) 50 mcg (2,000 unit) capsule 50 mcg PO DAILY RF: 0 duloxetine 20 mg capsule,delayed release(DR/EC) 20 mg PO DAILY Qty: 90 RF: 3 allopurinol 300 mg tablet 300 mg PO DAILY Qty: 90 RF: 3 levothyroxine [Synthroid] 50 mcg tablet 50 mcg PO DAILY Qty: 90 RF: 3 Changed amlodipine 2.5 mg tablet 2.5 mg PO BID Qty: 60 RF: 1 Discontinued losartan 100 mg tablet 100 mg PO DAILY Qty: 90 RF: 3 Discharge Orders: Discharge Order (Routine); Ordered 05/15/20 Ordered By: Bro Fitch/Other Patient Handouts: Managing Type 2 Diabetes Admission Data Admit Date/Time: 05/07/20 18:30 Attending Provider: Bro Rangel Admit Provider: El De Luna Primary Care Provider: Ilsa Smith Other Providers: Bro Mari ; Candido Sanders ; Ole Stauffer ; Angela Lucero ; Kalin Evans I. ; Bijan Lee II ; Cheryl Mcdonnell ; Ankur Francis ; [facility] Other Interventions: Discharge Summary Assessment (RN) Last Done: 05/15/20 16:09 Coding Level of Care Code D/C Day Management >30 mins Diagnoses Gangrene of toe of right foot I96 Cellulitis of right lower extremity L03.115 Diabetic foot infection E11.628; L08.9 CAROLYNE (acute kidney injury) N17.9 Diabetes mellitus E11.9 Peripheral artery disease I73.9 Generalized anxiety disorder F41.1 Depression, major, recurrent F33.9 Benign essential hypertension I10 CKD (chronic kidney disease) stage 3, GFR 30-59 ml/min N18.3 Hypothyroidism E03.9 Gout M10.9 Dysphagia R13.10 Right foot drop M21.371
--- NOTE | 2020-05-15 22:40 | Electrocardiogram Report ---
Test Reason : Blood Pressure : / mmHG Vent. Rate : 064 BPM Atrial Rate : 064 BPM P-R Int : 440 ms QRS Dur : 088 ms QT Int : 406 ms P-R-T Axes : 055 042 050 degrees QTc Int : 418 ms Sinus rhythm with 1st degree A-V block Otherwise normal ECG No previous ECGs available Confirmed by Tommy Hairston ([id number]) on 05/15/2020 10:39:54 PM Referred By: REFERRED SELF Confirmed By:Tommy Hairston
== END 2020-05-15 18:30 | disposition home health service (06) | DRG 240 ==
LOC: ED 14:30 → SUATTDRO 18:30 → 3W 18:30
DX: Z79.890 Hormone replacement therapy; M21.371 Foot drop, right foot; E11.621 Type 2 diabetes mellitus with foot ulcer; L03.115 Cellulitis of right lower limb; I12.9 Hypertensive chronic kidney disease with stage 1 through stage 4 chronic kidney disease, or unspecified chronic kidney disease; E11.52 Type 2 diabetes mellitus with diabetic peripheral angiopathy with gangrene; F41.1 Generalized anxiety disorder; N17.8 Other acute kidney failure; B96.5 Pseudomonas (aeruginosa) (mallei) (pseudomallei) as the cause of diseases classified elsewhere; E11.42 Type 2 diabetes mellitus with diabetic polyneuropathy; N18.30 Chronic kidney disease, stage 3 unspecified; T36.0X5A Adverse effect of penicillins, initial encounter; F33.9 Major depressive disorder, recurrent, unspecified; L97.518 Non-pressure chronic ulcer of other part of right foot with other specified severity; Z79.899 Other long term (current) drug therapy; Z88.2 Allergy status to sulfonamides; M10.9 Gout, unspecified; I70.261 Atherosclerosis of native arteries of extremities with gangrene, right leg; E11.22 Type 2 diabetes mellitus with diabetic chronic kidney disease; E03.9 Hypothyroidism, unspecified; Z79.84 Long term (current) use of oral hypoglycemic drugs; R13.10 Dysphagia, unspecified

== ENCOUNTER 2020-07-09 13:38 | Inpatient (IN) ==
--- NOTE | 2020-07-07 12:41 | Anesthesiology Consultation ---
Date of Service July 07, 2020 Assessment & Plan (1) Encounter for pre-operative examination: Chart Review Chart Review: Acceptable Risk for Surgery (pending DOS Jerome test results ) and Patient NOT seen in Pre Admission Testing - Check BSG AM DOS Per nursing assessment 07/07/2020, patient denies any recent travel. No known Covid infection in the past 90 days. No known Covid positive contacts or Covid related symptoms. Pt was an essential add on case- did not have enough time to get PCR send out test. Dr Sanders request rapid Covid test DOS. Will order Jerome test DOS (pt low travel risk and currently scheduled as outpatient surgery). Did speak with surgeon's office requesting medical necessity statement be done informing why procedure is time sensitive and cannot follow current PCR Covid testing protocol. Per communication note 07/07/20= "Same-day COVID testing is necessary due to infection and urgency of procedure." Amputation right great toe 05/14/2020 = done under MAC. No anesthesia issues noted per anesthesia record. History Surgery Operation Date: 07/09/20 15:15 Proposed Procedures p Right Lower Extremity Foot Debridement - Candido Sanders MD Height/Weight Height: 5 ft 8 in Weight: 99.79 kg Allergies Allergy/AdvReac Type Severity Reaction Status Date / Time Sulfa (Sulfonamide Allergy Unknown UNSURE OF Verified 07/07/20 12:10 Antibiotics) REACTION, WAS TOLD BY MOTHER Medications Home Medications Medication Instructions Recorded Confirmed Last Taken glimepiride 1 mg tablet 1 mg PO QAM #90 tab 09/18/19 07/07/20 Unknown cholecalciferol (vitamin D3) 50 50 mcg PO DAILY 12/30/19 07/07/20 Unknown mcg (2,000 unit) capsule duloxetine 20 mg capsule,delayed 20 mg PO DAILY #90 cap 12/30/19 07/07/20 Unknown release vitamin B complex 1 tab PO DAILY 12/30/19 07/07/20 Unknown levothyroxine 50 mcg tablet 50 mcg PO DAILY #90 tab 12/31/19 07/07/20 Unknown multivitamin 1 tab PO DAILY 01/22/20 07/07/20 Unknown allopurinol 300 mg tablet 300 mg PO DAILY #90 tab 04/01/20 07/07/20 Unknown aspirin 81 mg PO QAM #90 tab 05/15/20 07/07/20 Unknown tamsulosin 0.4 mg capsule 0.4 mg PO HS #30 cap 05/21/20 07/07/20 Unknown blood-glucose meter #1 ea 05/24/20 07/02/20 Unknown lancets 33 gauge #100 ea 05/24/20 07/02/20 Unknown blood sugar diagnostic #100 ea 05/25/20 07/02/20 Unknown amlodipine 2.5 mg tablet 2.5 mg PO DAILY #60 tab 06/04/20 07/07/20 Unknown carvedilol 6.25 mg tablet 3.125 mg PO HS #60 tab 06/04/20 07/07/20 Unknown levofloxacin 500 mg PO QAM 07/07/20 07/07/20 Unknown Past Medical History Medical History (Updated 07/07/20 @ 12:45 by Citlaly Anaya PA-C) Anxiety and depression Benign essential hypertension CKD (chronic kidney disease) stage 3, GFR 30-59 ml/min Diabetes mellitus, type 2 Diabetic ulcer of right great toe S/p right first toe amputation Apr 2020 Hearing deficit Heart block AV first degree Hypothyroidism Occlusion and stenosis of right carotid artery Peripheral artery disease Poor historian Past Family History Family History Mother Diabetes Family history of diabetes mellitus Father Esophageal cancer Brother Family history of diabetes mellitus Other No family history of adverse response to anesthesia Denies family history of Ovarian cancer Prostate cancer Breast cancer Past Surgical History Surgical History History of anesthesia reaction COMBATIVE WITH KHAI (REQUIRED RESTRAINTS) History of cataract surgery LEFT History of tooth extraction History of total hip arthroplasty LEFT Status post amputation of right great toe 05/14/20 Dr. Candido Xiao great toe transmetatarsal amputation Social History Smoking Status: Never smoker Hx Alcohol Use: No Hx Substance Use: No substance use type: does not use Testing Laboratory Results Laboratory Tests 05/08/20 05/08/20 05/14/20 05:44 05:44 05:48 WBC Hgb Hct Plt Count PT 12.7 H INR 1.2 H Sodium Potassium Chloride Carbon Dioxide BUN Creatinine Glucose Hemoglobin A1c 7.8 H TSH 0.582 07/02/20 07/02/20 14:11 14:11 WBC 7.88 Hgb 9.5 L Hct 30.5 L Plt Count 306 PT INR Sodium 137 Potassium 4.4 Chloride 104 Carbon Dioxide 27 BUN 44 H Creatinine 1.79 H Glucose 171 H Hemoglobin A1c TSH Anemia chronic- Hgb stable since 04/2020 Decreased kidney function- chronic and stable Electrocardiogram Date: 05/21/20 Sinus rhythm with first-degree AV block at 75 bpm.
--- NOTE | 2020-07-07 13:16 | Communication Note ---
Date of Service: July 07, 2020 Same-day COVID testing is necessary due to infection and urgency of procedure.
--- NOTE | 2020-07-09 06:27 | History & Physical Report ---
Date of Service July 09, 2020 Assessment & Plan (1) Necrosis of surgical wound: Patient is admitted for debridement of his right foot wound. I have discussed the risks options and benefits of the procedure with the patient. The patient understands the risks options and benefits and agrees to the procedure. History of Present Illness Chief Complaint: Necrotic right foot wound Primary Care Provider: Ilsa Smith MD Mr. Cardenas is an elderly male who presents to the vascular surgery clinic for a 1 week follow-up visit regarding his right foot first toe amputation site. Patient denies any complaints at this time, however, his daughter states that they have noticed increased swelling and redness of his foot wound in the last few days. They have not noticed increased drainage. They have been continuing to dress it daily. They deny fevers or nausea or vomiting. Allergies Allergy/AdvReac Type Severity Reaction Status Date / Time Sulfa (Sulfonamide Allergy Unknown UNSURE OF Verified 07/07/20 12:10 Antibiotics) REACTION, WAS TOLD BY MOTHER Home Medications Medication Instructions Recorded Confirmed Type glimepiride 1 mg tablet 1 mg PO QAM #90 tab 09/18/19 07/07/20 Rx cholecalciferol (vitamin D3) 50 50 mcg PO DAILY 12/30/19 07/07/20 History mcg (2,000 unit) capsule duloxetine 20 mg capsule,delayed 20 mg PO DAILY #90 cap 12/30/19 07/07/20 Rx release vitamin B complex 1 tab PO DAILY 12/30/19 07/07/20 History levothyroxine 50 mcg tablet 50 mcg PO DAILY #90 tab 12/31/19 07/07/20 Rx multivitamin 1 tab PO DAILY 01/22/20 07/07/20 History allopurinol 300 mg tablet 300 mg PO DAILY #90 tab 04/01/20 07/07/20 Rx aspirin 81 mg PO QAM #90 tab 05/15/20 07/07/20 Rx tamsulosin 0.4 mg capsule 0.4 mg PO HS #30 cap 05/21/20 07/07/20 Rx blood-glucose meter #1 ea 05/24/20 07/02/20 Rx lancets 33 gauge #100 ea 05/24/20 07/02/20 Rx blood sugar diagnostic #100 ea 05/25/20 07/02/20 Rx amlodipine 2.5 mg tablet 2.5 mg PO DAILY #60 tab 02/05/21 03/10/21 Rx carvedilol 6.25 mg tablet 3.125 mg PO HS #60 tab 06/04/20 07/07/20 Rx levofloxacin 500 mg PO QAM 07/07/20 07/07/20 History Past Med/Surg History Medical History Anxiety and depression Benign essential hypertension CKD (chronic kidney disease) stage 3, GFR 30-59 ml/min Diabetes mellitus, type 2 Diabetic ulcer of right great toe S/p right first toe amputation Apr 2020 Hearing deficit Heart block AV first degree Hypothyroidism Occlusion and stenosis of right carotid artery Peripheral artery disease Poor historian Surgical History History of anesthesia reaction COMBATIVE WITH KHAI (REQUIRED RESTRAINTS) History of cataract surgery LEFT History of tooth extraction History of total hip arthroplasty LEFT Status post amputation of right great toe 05/14/20 Dr. Candido Sanders- R great toe transmetatarsal amputation Family History Mother Diabetes Family history of diabetes mellitus Father Esophageal cancer Brother Family history of diabetes mellitus Other No family history of adverse response to anesthesia Denies family history of Ovarian cancer Prostate cancer Breast cancer Social History Smoking Status: Never smoker Second Hand Exposure: No; Hx Alcohol Use: No Hx Substance Use: No Preferred Language: [place] Verdean Communication Ability: Effective Visual Impairment: No Limitations Hearing Ability: Use of Hearing Aid Cobbler Upper Required: No Beliefs That Will Affect Care: None marital status: Current Living Situation: Spouse current occupational status: retired How many Children do You have: 0 Feels Safe at Home: Yes Safety Concerns: Feels Safe At This Time Childhood Exposure to Second-Hand Smoke: No Diet Comment: Diabetic diet caffeine: Yes (Coffee tea) during the past year weight has: decreased > 10 lbs Dental Care, Regularly: No Physical Activity Frequency: Does not Exercise Seatbelt Use: sometimes Sunscreen Use: No Do you think of yourself as: straight/heterosexual Assistive Devices: Denture - Upper, Hearing Aid - Left and Walker Review of Systems All systems reviewed & are unremarkable except as noted in HPI & below Physical Exam Constitutional: well developed and well nourished Respiratory: normal respiratory effort, lungs clear to auscultation Cardiovascular: RRR, no murmur, no edema Gastrointestinal (Abdomen): Inspection/Auscultation: abdomen normal to inspection; abdomen not distended Percussion/Palpation: abdomen soft Skin: + incision His right foot does demonstrate increased erythema and local edema surrounding his toe amputation site. The wound has deteriorated, and dehisced. There is minimal serosanguineous drainage, as well as slough and mild necrosis. There is a faint odor. His remaining toes demonstrate brisk capillary refill and no sign of ischemia or active infection. Neurologic: CN's II-XI intact bilaterally and moves all extremities Psychiatric: Orientation: alert and oriented x 3
[~2020-07-09 13:38] MED LIST: SODIUM CHLORIDE 0.9% 1000ML IV SCH; ceFAZolin 2000MG 2,000 MG/15 ML SYR IV SCH
--- NOTE | 2020-07-09 14:28 | XRay Report ---
TWO VIEW CHEST CLINICAL HISTORY: Preoperative examination. FINDINGS: PA and lateral chest radiographs are obtained. No prior studies are available for compariso n at the time of dictation. The heart is enlarged noting atherosclerotic calcification of the thorac ic aorta. The pulmonary vasculature is noncongested. The lungs and pleural spaces are clear. There i s no pneumothorax. The skeletal structures are osteopenic. The bony thorax appears intact. Degenerati ve change is noted throughout the thoracic spine. IMPRESSION: Cardiomegaly with no active disease in the chest. ACT 112: Negative or not required by law. Electronically signed by: Corey Patel M.D. 07/09/2020 2:27 PM
[2020-07-09 14:32] LABS: BUN Creatinine Ratio 25.4 (10-20); Calcium 9.6 mg/dl (8.5-10.1); Creatinine Clr Calc Pharmacy 35.6 ml/min; Est GFR (African American) 36.9; Est GFR (Non-African American) 31.8; Potassium 4.1 mmol/L (3.5-5.1)
--- NOTE | 2020-07-09 15:06 | History & Physical Bridge Note ---
Date of Service July 09, 2020 History & Physical Bridge Note I have examined the patient, reviewed the History & Physical and in the interval since the performance of the History & Physical I have noted the following changes of clinical significance: no changes noted
[2020-07-09] MEDS ORDERED: LIDOCAINE HCL 2% 2 ML VIAL/AMP(20MG/ML) INFIL ONE (15:38)
[2020-07-09] MEDS ORDERED: ONDANSETRON INJ 2 MG/ML 2 ML VIAL ONE (15:38)
[2020-07-09] MEDS ORDERED: MIDAZOLAM HCL 1 MG/ML 2ML VIAL ONE (15:38)
[2020-07-09] MEDS ORDERED: fentaNYL citrate 100 MCG/2 ML VIAL ONE (15:38)
[2020-07-09] MEDS ORDERED: PROPOFOL IV EMULSION 10 MG/ML 20 ML VIAL IV ONE ×3 (15:38→16:50)
[2020-07-09] MEDS ORDERED: BUPIVACAINE 0.25% 30 ML VIAL ONE (15:45)
[2020-07-09] MEDS ORDERED: THROMBIN FOR SOLN 20000 UNIT KIT ONE (17:10)
[2020-07-09] MEDS ORDERED: ONDANSETRON INJ 2 MG/ML 2 ML VIAL IV PRN (17:34)
[2020-07-09] MEDS ORDERED: oxyCODONE/ACETAMINOPHEN 5mg/325mg TAB PO PRN (17:34)
--- NOTE | 2020-07-09 17:40 | Post Operative Brief Note ---
Immediate Post Op Note v1 Date of Surgery July 09, 2020 Pre & Post Diagnosis Operation Date: 07/09/20 15:15 Pre-Op Diagnosis: necrosis of surgical wound right foot Post-Op Diagnosis: necrosis of surgical wound right foot I identified the patient and participated in the time-out.: Yes Procedure Operation Date: 07/09/20 15:15 Actual Procedures p Right Lower Extremity Foot Debridement, skin, subcutaneous tissue and bone (15x5(Right) - Candido Sanders MD Surgeon Candido Sanders MD Parts And Service Manager MD Suman Sandoval Minarchevelio,PAC Estimated Blood Loss 100 Findings Consistent with Post-Op Diagnosis Anesthesia Type MAC Regional Complications none Disposition Accompanied Patient To Recovery: No Disposition: Recovery Room
--- NOTE | 2020-07-09 17:59 | Anesthesiology Progress Note ---
Date of Service July 09, 2020 Anesthesia Post Procedure Vital Signs Vital Signs: Temp Pulse Resp BP Pulse Ox 07/09/20 17:50 82 20 145/76 H 100 07/09/20 17:41 36.3 C L 84 20 145/77 H 100 07/09/20 14:35 36.6 C 92 H 20 182/92 H 99 Transfer of Care Handoff Completed per policy Notes Mental Status: alert / awake / arousable and participated in evaluation Patient Amnestic to Procedure: Yes Nausea / Vomiting: adequately controlled Pain: adequately controlled Airway Patency, RR, SpO2: stable & adequate BP & HR: stable & adequate Hydration State: stable & adequate Anesthetic Complications: no major complications apparent and Pt Satisfied with anesthetic care
[2020-07-09] MEDS ORDERED: GLUCAGON FOR INJ 1 MG VIAL IM PRN (20:00)
[2020-07-09] MEDS ORDERED: DEXTROSE 50% 50 ML SYRINGE IV PRN (20:00)
[2020-07-09] MEDS ORDERED: CARBOHYDRATES FOR HYPOGLYCEMIA PO PRN (20:00)
[2020-07-09] MEDS ORDERED: GLUCOSE 40% GEL 15 GM TUBE PO PRN (20:00)
[2020-07-09] MEDS ORDERED: GLUCOSE 10 TABS/TUBE PO PRN (20:00)
[2020-07-09] MEDS: TAMSULOSIN HCL 0.4 MG CAP PO SCH (21:13)
[2020-07-09] MEDS: carvediloL 3.125 MG TAB PO SCH (21:13)
[2020-07-10] MEDS: LEVOTHYROXINE SODIUM 50 MCG TABLET PO SCH (05:38)
[2020-07-10] MEDS ORDERED: ACETAMINOPHEN 500 MG TAB PO PRN (06:40)
--- NOTE | 2020-07-10 07:47 | Surgery Progress Note ---
Date of Service July 10, 2020 Assessment & Plan (1) Necrosis of surgical wound: Patient is doing well postop. We need to make arrangements for the wound VAC. Once arrangements are made he can be discharged to home. Admission and Anticipated Discharge Date Admission Date: July 09, 2020 Subjective Patient awake and alert. He is complaining some mild pain in the right foot. Does not want to try to Percocet he would rather do Tylenol. Physical Exam Constitutional: WD/WN, vitals as above well developed Respiratory: no respiratory distress Cardiovascular: Rate/Rhythm: regular rate and regular rhythm Skin: Wound VAC is in place with good suction present. No surrounding erythema is noted. Results & Data ([facility]) Vital Signs (Past 12 Hours) Vital Signs Temp Pulse Resp BP Pulse Ox Pulse Ox 07/10/20 07:30 37.3 C 89 20 162/84 H 96 07/09/20 23:59 97 07/09/20 23:23 37.1 C 81 18 143/75 H 93 07/09/20 21:23 36.5 C 87 16 136/74 97 07/09/20 20:33 36.8 C 86 14 128/71 97 07/09/20 20:01 36.9 C 86 16 144/77 H 95
[2020-07-10] MEDS: GLIMEPIRIDE 2 MG TAB PO SCH (07:49)
[2020-07-10] MEDS: ASPIRIN 81 MG ECTAB PO SCH (07:50)
[2020-07-10] MEDS: amLODIPine BESYLATE 5 MG TAB PO SCH (07:51)
[2020-07-10] MEDS: allopurinoL 300 MG TAB PO SCH (07:54)
[2020-07-10] MEDS: CHOLECALCIFEROL 1,000 UNITS 25 MCG TAB PO SCH (07:54)
[2020-07-10] MEDS: DULoxetine HCL 20 MG CAP PO SCH (07:54)
[2020-07-10] MEDS: VITAMIN B COMPLEX TAB PO SCH (07:55)
[2020-07-10] MEDS: MULTIVITAMIN TAB PO SCH (07:55)
[2020-07-10] MEDS: levoFLOXacin 250 MG TABLET PO SCH (11:01)
[2020-07-10] MEDS: TAMSULOSIN HCL 0.4 MG CAP PO SCH (20:16)
[2020-07-10] MEDS: carvediloL 3.125 MG TAB PO SCH (20:16)
[2020-07-11] MEDS: LEVOTHYROXINE SODIUM 50 MCG TABLET PO SCH (05:43)
[2020-07-11] MEDS: VITAMIN B COMPLEX TAB PO SCH (08:21)
[2020-07-11] MEDS: allopurinoL 300 MG TAB PO SCH (08:21)
[2020-07-11] MEDS: ASPIRIN 81 MG ECTAB PO SCH (08:21)
[2020-07-11] MEDS: MULTIVITAMIN TAB PO SCH (08:21)
[2020-07-11] MEDS: amLODIPine BESYLATE 5 MG TAB PO SCH (08:21)
[2020-07-11] MEDS: CHOLECALCIFEROL 1,000 UNITS 25 MCG TAB PO SCH (08:21)
[2020-07-11] MEDS: DULoxetine HCL 20 MG CAP PO SCH (08:21)
[2020-07-11] MEDS: GLIMEPIRIDE 2 MG TAB PO SCH (08:22)
--- NOTE | 2020-07-11 09:55 | Surgery Progress Note ---
Date of Service July 11, 2020 Assessment & Plan (1) Necrosis of surgical wound: Patient is doing well postop. We will order a stool softener for the patient. Awaiting arrangements for home wound VAC. Admission and Anticipated Discharge Date Admission Date: July 09, 2020 Subjective Is no complaint of foot pain. His only complaint at this point is constipation. Physical Exam Physical Exam: Wound VAC is in place and working well. There is no surrounding erythema. Results & Data ([facility]) Vital Signs (Past 12 Hours) Vital Signs Temp Pulse Resp BP Pulse Ox 07/11/20 07:41 37.1 C 79 16 144/74 H 95 07/10/20 22:00 36.3 C L 87 18 126/62 97
[2020-07-11] MEDS: DOCUSATE SODIUM 100 MG CAP PO SCH ×2 (10:21→21:29)
[2020-07-11] MEDS: levoFLOXacin 250 MG TABLET PO SCH (10:21)
--- NOTE | 2020-07-11 20:24 | Operative Report ---
Post Operative Report Pre & Post Diagnosis Operation Date: 07/09/20 15:15 Pre-Op Diagnosis: necrosis of surgical wound right foot Post-Op Diagnosis: necrosis of surgical wound right foot I identified the patient and participated in the time-out.: Yes Procedure Operation Date: 07/09/20 15:15 Actual Procedures p Right Lower Extremity Foot Debridement(Right) - Candido Sanders MD Surgeon Candido Sanders MD Home Energy Auditor MD Jaime LMariano Minarchick,PAC Estimated Blood Loss 100 Findings Consistent with Post-Op Diagnosis Specimens None Anesthesia Type MAC Regional Complications none Disposition Accompanied Patient To Recovery: No Disposition: Recovery Room Indications Non-healing ischemic wound of the right lower extremity Description of Procedure The patient was taken to the operating suite. The patient's identity and surgical procedure were verified. The patient was transferred over to the operating room table and placed in the supine position. The right foot was prepped and draped in the usual sterile fashion. A team timeout was performed including confirmation of the patient's identity, surgical site, and surgical procedure. Using a scalpel the areas of unhealthy and necrotic skin were excised. Deep to this there was necrotic tissue in the base of the wound; this was also excised. Some of the remaining first metatarsal was exposed at the base of the wound after removal of unhealthy tissue. An incision was extended along the remaining first metatarsal in the foot along its dorsal aspect; this incision was longitudinal, and created such that when combined with the already open portion of the wound, created a raquet incision. The soft tissue surrounding the exposed area of first metatarsal was freed up and additional ~5cm of first metatarsal was removed with the bone saw. The sharp edges of the bone were filed down. Using vertical mattress 3-0 vicryl sutures, the skin over the longitudinal portion of the incision was closed with a few stitches. Hemostasis was obtained. A wound vac was placed over the remaining wound using silver wound vac sponge. The vac was set to -125mmHg continuous therapy and had good seal. At the conclusion of the case, all instrument, sponge, and needle counts were correct. The patient tolerated the procedure well and without immediate complication. The patient was taken to the recovery room in satisfactory condition. Dr. Sanders was present and scrubbed for the entire procedure. I attest to the content of the Intraoperative Record and any orders documented therein. Any exceptions are noted below.
[2020-07-11] MEDS: TAMSULOSIN HCL 0.4 MG CAP PO SCH (21:29)
[2020-07-11] MEDS: carvediloL 3.125 MG TAB PO SCH (21:29)
[2020-07-12] MEDS: LEVOTHYROXINE SODIUM 50 MCG TABLET PO SCH (06:45)
[2020-07-12] MEDS: ASPIRIN 81 MG ECTAB PO SCH (08:07)
[2020-07-12] MEDS: CHOLECALCIFEROL 1,000 UNITS 25 MCG TAB PO SCH (08:07)
[2020-07-12] MEDS: allopurinoL 300 MG TAB PO SCH (08:07)
[2020-07-12] MEDS: DOCUSATE SODIUM 100 MG CAP PO SCH ×2 (08:07→21:38)
[2020-07-12] MEDS: DULoxetine HCL 20 MG CAP PO SCH (08:07)
[2020-07-12] MEDS: MULTIVITAMIN TAB PO SCH (08:07)
[2020-07-12] MEDS: VITAMIN B COMPLEX TAB PO SCH (08:07)
[2020-07-12] MEDS: amLODIPine BESYLATE 5 MG TAB PO SCH (08:11)
[2020-07-12] MEDS: GLIMEPIRIDE 2 MG TAB PO SCH (08:12)
--- NOTE | 2020-07-12 09:39 | Surgery Progress Note ---
Date of Service July 12, 2020 Assessment & Plan (1) Necrosis of surgical wound: Patient is doing well postop. Vac changed today with good early results. Awaiting arrangements for home wound VAC. Admission and Anticipated Discharge Date Admission Date: July 09, 2020 Subjective 80 yo m POD #3 after RLE 1st TMA wound debridement, seen in f/u today. Pt denies pain or other complaints presently. Wants to go home. Review of Systems Review of Systems: All systems reviewed & are unremarkable except as noted in HPI & below Physical Exam Physical Exam: Wound VAC is in place and working well. There is no surrounding erythema. Constitutional: WD/WN, vitals as above well developed and well nourished Respiratory: normal respiratory effort, lungs clear to auscultation no respiratory distress Cardiovascular: RRR, no murmur, no edema Rate/Rhythm: regular rate and reg ular rhythm Gastrointestinal (Abdomen): Inspection/Auscultation: abdomen normal to inspection; abdomen not distended Percussion/Palpation: abdomen soft Skin: + wound (RLE wound with red tissue, some early granulation noted. +local maceration) and + incision edema improving Neurologic: CN's II-XI intact bilaterally and moves all extremities Psychiatric: Orientation: alert and oriented x 3 Results & Data ([facility]) Vital Signs (Past 12 Hours) Vital Signs Temp Pulse Resp BP Pulse Ox 07/12/20 07:31 36.7 C 72 18 137/75 96 07/11/20 23:20 36.9 C 73 16 141/78 H 96
[2020-07-12] MEDS: levoFLOXacin 250 MG TABLET PO SCH (10:27)
[2020-07-12] MEDS: TAMSULOSIN HCL 0.4 MG CAP PO SCH (21:38)
[2020-07-12] MEDS: carvediloL 3.125 MG TAB PO SCH (21:39)
[2020-07-13] MEDS: LEVOTHYROXINE SODIUM 50 MCG TABLET PO SCH (05:52)
[2020-07-13] MEDS: ASPIRIN 81 MG ECTAB PO SCH (09:05)
[2020-07-13] MEDS: VITAMIN B COMPLEX TAB PO SCH (09:05)
[2020-07-13] MEDS: MULTIVITAMIN TAB PO SCH (09:05)
[2020-07-13] MEDS: allopurinoL 300 MG TAB PO SCH (09:05)
[2020-07-13] MEDS: amLODIPine BESYLATE 5 MG TAB PO SCH (09:06)
[2020-07-13] MEDS: DULoxetine HCL 20 MG CAP PO SCH (09:06)
[2020-07-13] MEDS: CHOLECALCIFEROL 1,000 UNITS 25 MCG TAB PO SCH (09:06)
[2020-07-13] MEDS: GLIMEPIRIDE 2 MG TAB PO SCH (09:06)
[2020-07-13] MEDS: DOCUSATE SODIUM 100 MG CAP PO SCH (09:06)
--- NOTE | 2020-07-13 11:07 | Surgery Progress Note ---
Date of Service July 13, 2020 Assessment & Plan (1) Necrosis of surgical wound: Patient is doing well postop. Approval obtained from insurance for wound vac at home. Will d/c home today with home nursing services. Will need follow up with Dr Dietrich as well as [facility] for wound care. Admission and Anticipated Discharge Date Admission Date: July 09, 2020 Subjective 80 yo m POD #4 after RLE 1st TMA wound debridement, seen in f/u today. Pt denies significant pain or other complaints presently. Wants to go home. Review of Systems Review of Systems: All systems reviewed & are unremarkable except as noted in HPI & below Physical Exam Physical Exam: Wound VAC is in place and working well. There is no surrounding erythema. Constitutional: WD/WN, vitals as above well developed and well nourished Respiratory: normal respiratory effort, lungs clear to auscultation no respiratory distress Cardiovascular: RRR, no murmur, no edema Rate/Rhythm: regular rate and regular rhythm Gastrointestinal (Abdomen): Inspection/Auscultation: abdomen normal to inspection; abdomen not distended Percussion/Palpation: abdomen soft Skin: + wound (RLE wound with red tissue, some early granulation noted. +local maceration) and + incision Neurologic: CN's II-XI intact bilaterally and moves all extremities Psychiatric: Orientation: alert and oriented x 3 Results & Data ([facility]) Vital Signs (Past 12 Hours) Vital Signs Temp Pulse Resp BP Pulse Ox 07/13/20 07:27 36.8 C 78 18 146/72 H 96
[2020-07-13] MEDS: levoFLOXacin 250 MG TABLET PO SCH (11:18)
--- NOTE | 2020-07-13 14:47 | Discharge Summary ---
Date of Service July 13, 2020 Admission HPI Per Admitting Provider Mr. Cardenas is an elderly male who presents to the vascular surgery clinic for a 1 week follow-up visit regarding his right foot first toe amputation site. Patient denies any complaints at this time, however, his daughter states that they have noticed increased swelling and redness of his foot wound in the last few days. They have not noticed increased drainage. They have been continuing to dress it daily. They deny fevers or nausea or vomiting. Admission Exam Per Admitting Provider Constitutional: well developed and well nourished Respiratory: normal respiratory effort, lungs clear to auscultation Cardiovascular: RRR, no murmur, no edema Gastrointestinal (Abdomen): Inspection/Auscultation: abdomen normal to inspection; abdomen not distended Percussion/Palpation: abdomen soft Skin: + incision His right foot does demonstrate increased erythema and local edema surrounding his toe amputation site. The wound has deteriorated, and dehisced. There is minimal serosanguineous drainage, as well as slough and mild necrosis. There is a faint odor. His remaining toes demonstrate brisk capillary refill and no sign of ischemia or active infection. Neurologic: CN's II-XI intact bilaterally and moves all extremities Psychiatric: Orientation: alert and oriented x 3 Principal Diagnosis 1. s/p R foot wound debridement with wound vac application 2. R foot wound infection/necrosis Discharge Exam Constitutional WD/WN, vitals as above well developed and well nourished Respiratory normal respiratory effort, lungs clear to auscultation no respiratory distress Cardiovascular RRR, no murmur, no edema Rate/Rhythm: regular rate and regular rhythm Gastrointestinal (Abdomen) Inspection/Auscultation: abdomen normal to inspection; abdomen not distended Percussion/Palpation: abdomen soft Skin + wound (RLE wound with red tissue, some early granulation noted. +local maceration) and + incision Neurologic CN's II-XI intact bilaterally and moves all extremities Psychiatric Orientation: alert and oriented x 3 Discharge Data Allergies Allergy/AdvReac Type Severity Reaction Status Date / Time Sulfa (Sulfonamide Allergy Unknown UNSURE OF Verified 07/09/20 14:28 Antibiotics) REACTION, WAS TOLD BY MOTHER Consultations 07/10/20 08:00 Consult Case Management - Discharge Planning Routine Procedures Performed Operation Date: 07/09/20 15:15 Actual Procedures p Right Lower Extremity Foot Debridement(Right) - Candido Dietrich MD Ordered Studies 07/09/20 05:00 US - OR guided needle placemen Routine Hospital Course (1) Necrosis of surgical wound: Patient is doing well postop day #4. Approval obtained from insurance for wound vac at home. Will d/c home today with home nursing services. Will need follow up with Dr Dietrich as well as [facility] for wound care. Total Time Total Time Spent Total Time Spent (In Minutes): 0 Discharge Plan Discharge Items Patient Disposition: Home - Home Health Services Reason For Visit: Right Lower Extremity Wound Infection Discharge Diagnosis: 1. s/p Right foot wound debridement 2. R foot wound infection Condition on Discharge: Good Activity: Per Instructions section Non-emergency contact: Primary Care Provider and Surgeon Call non-emergency contact if: you have any medication questions, your pain is unusual for you, your pain is concerning for you, your temperature is above 101 and your wound has increased redness Follow-up/Referrals: Ilsa Smith MD [Primary Care Provider] - 07/20/20 11:30 am (within 1-2 weeks after discharge) Yazmin Hobbs DO, FACEP [Physician] - 07/21/20 10:00 am (Eval by [facility] for Wound Care within 2 weeks after discharge) Candido Dietrich MD [Physician] - ('s office will call patient to follow up with appointment date/time.) Diet: Carb Consistent or DM2 and Heart Healthy Addtl Attending Provider Instructions: ACTIVITY RECOMMENDATIONS: 1. Wound Vac to be changed M/W/F by Home Nursing only. 2. DO NOT get R foot wet. 3. Will need appt with Dr Dietrich in 1 week. 4. Will need appt with [facility] for Wound Care within 1-2 weeks. SPECIAL CARE INSTRUCTIONS: Call your doctor if: * Temperature above 101 degrees * Pain not relieved by pain medicine ordered * There is increased drainage or redness from any incision * You have any unanswered questions or concerns. Pending Studies at Discharge: No Stand-Alone Forms: My [employer], Opioid Pain Management, Smoking Cessation Medications and DC Order Prescriptions: New oxycodone-acetaminophen [Percocet] 5-325 mg Tablet 1 - 2 tab PO Q6 PRN (Reason: pain) Qty: 20 RF: 0 docusate sodium 100 mg Capsule 100 mg PO BID PRN (Reason: Constipation) Qty: 60 RF: 0 Continued glimepiride 1 mg tablet 1 mg PO QAM Qty: 90 RF: 3 (DME) blood-glucose meter [Accu-Chek Guide Glucose Meter] Misc See Rx Instructions .ROUTE .MEDSUPPLY Qty: 1 RF: 0 (DME) lancets [BD Ultra Fine Lancets] 33 gauge misc See Dose Instructions .ROUTE .MEDSUPPLY Qty: 100 RF: 3 (DME) Accu-Chek Guide test strips Strip See Rx Instructions .ROUTE .MEDSUPPLY Qty: 100 RF: 3 multivitamin Tablet 1 tab PO DAILY RF: 0 amlodipine 2.5 mg tablet 2.5 mg PO DAILY Qty: 60 RF: 1 carvedilol 6.25 mg tablet 3.125 mg PO HS Qty: 60 RF: 1 vitamin B complex Tablet 1 tab PO DAILY RF: 0 cholecalciferol (vitamin D3) 50 mcg (2,000 unit) capsule 50 mcg PO DAILY RF: 0 duloxetine 20 mg capsule,delayed release(DR/EC) 20 mg PO DAILY Qty: 90 RF: 3 allopurinol 300 mg tablet 300 mg PO DAILY Qty: 90 RF: 3 levothyroxine [Synthroid] 50 mcg tablet 50 mcg PO DAILY Qty: 90 RF: 3 tamsulosin 0.4 mg capsule 0.4 mg PO HS Qty: 30 RF: 2 aspirin 81 mg Tablet,Delayed Release (Dr/Ec) 81 mg PO QAM Qty: 90 RF: 3 levofloxacin 500 mg Tablet 500 mg PO QAM RF: 0 Discharge Orders: Discharge Order (Routine); Ordered 07/13/20 Ordered By: Lis Fitch/Other Patient Handouts: Negative Pressure Wound Therapy Admission Data Admit Date/Time: 07/09/20 18:59 Attending Provider: Candido Dietrich Admit Provider: Candido Dietrihc Primary Care Provider: Ilsa Smith Other Interventions: Discharge Summary Assessment (RN) Last Done: 07/13/20 11:22
== END 2020-07-13 17:51 | disposition home health service (06) | DRG 505 ==
LOC: ASU 13:38 → 3N 18:59